=== PATIENT | male | born 1970 | race Caucasian/White ===

== ENCOUNTER 2021-09-01 12:02 | Outpatient (REF) | payer OTHER, SELFPAY ==
[2021-09-01 13:13] LABS: Hematocrit 50.5 % (42.0-52.0); Hemoglobin 17.1 g/dl (14.0-18.0); Mean Corpuscular HGB Conc 33.9 g/dl (31.0-36.0); Mean Corpuscular Volume 94.6 fL (80.0-98.0); Mean Platelet Volume 9.6 fL (9.4-12.4); Platelet Count 269 X10*3/uL (160-400); Red Blood Count 5.34 X10*6/uL (4.60-5.80); Red Cell Distribution Width 14.3 % (11.0-16.0); White Blood Count 9.8 X10*3/uL (4.8-10.8)
[2021-09-01 13:24] LABS: Estimated Average Glucose 108 mg/dL; Hemoglobin A1c % 5.4 %
[2021-09-01 13:47] LABS: Alanine Aminotransferase 49 U/L (0-40); Albumin Level 4.4 g/dL (3.5-5.0); Alkaline Phosphatase 61 U/L (39-117); Anion Gap 14 (12-20); Aspartate Amino Transferase 33 U/L (5-37); Bilirubin Total 0.4 mg/dL (0.0-1.0); Blood Urea Nitrogen 13 mg/dL (9-16); Calcium 10.2 mg/dL (8.4-10.2); Carbon Dioxide 26 mmol/L (22-29); Chloride 104 mmol/L (96-108); Cholesterol 228 mg/dL; Estimated Glomerular Filt Rate > 60; Glucose Fasting 87 mg/dL (60-99); HDL Cholesterol 73 mg/dL; LDL Cholesterol Calculated 136 mg/dl; Potassium 4.7 mmol/L (3.3-5.1); Sodium 139 mmol/L (135-145); Total Protein 7.5 g/dL (6.5-8.0); Triglycerides 95 mg/dL
[2021-09-01 14:00] LABS: Syphilis Screen Nonreactive (Nonreactive)
[2021-09-01 14:12] LABS: Prostate Specific Antigen Scr 0.72 ng/mL (<0.05-4.0); TSH reflex Free T4 4.03 uIU/mL (0.32-4.0)
[2021-09-01 14:51] LABS: Free T4 (Free Thyroxine) 0.76 ng/dL (0.71-1.85)
[2021-09-01 15:25] LABS: CT PCR NOT DETECTED (Not Detect.); NG PCR NOT DETECTED (Not Detect.)
[2021-09-02 05:57] LABS: HBS Num1 1.28 mIU/mL (0-7.99); HBc Num1 0.09 S/CO (0.00-0.79); HBsAGNum1 0.18 S/CO (0.00-0.99); HIV AB/AG Nonreactive (Nonreactive); HIV Num 1 0.07 S/CO (0.00-0.99); Hepatitis B Core Antibody Nonreactive (Nonreactive); Hepatitis B Surface Antigen Negative (Negative); ~Hepatitis B Surface Antibody NONREACTIVE (Nonreactive); ~Hepatitis C Antibody Nonreactive (Nonreactive)
== END 2021-09-01 12:03 | disposition home or self-care (01) ==
LOC: HO.LAB 12:02
PROVIDERS: PCP Physician Assistant; Visit Provider Physician Assistant
DX: Z12.5 Encounter for screening for malignant neoplasm of prostate (principal); Z11.4 Encounter for screening for human immunodeficiency virus [HIV]; Z11.3 Encounter for screening for infections with a predominantly sexual mode of transmission; Z20.2 Contact with and (suspected) exposure to infections with a predominantly sexual mode of transmission; I10 Essential (primary) hypertension; F17.200 Nicotine dependence, unspecified, uncomplicated
CPT/HCPCS: 80053; 80061; 83036; 84153; 84439; 84443; 85027; 86704; 86706; 86780; 86803; 87340; 87389; 87491; 87591

== ENCOUNTER 2022-02-14 18:36 | Emergency (ER) | payer OTHER, SELFPAY | END 2022-02-14 21:31 | disposition left against medical advice (07) | PROVIDERS: Emergency Provider Emergency Medicine; PCP Physician Assistant | DX: M54.50 Low back pain, unspecified (principal) ==

== ENCOUNTER 2022-02-16 06:49 | Emergency (ER) | payer OTHER, SELFPAY ==
[2022-02-16 07:31] VITALS: BP 151/104; PULSE 84; RESP 20; TEMP 36.4; O2SAT 97; BMI 28.8
--- NOTE | 2022-02-16 08:44 | ED.BACK ---
HPI - Back Pain/Injury General Chief Complaint: Back Pain/Injury Stated Complaint: Back pain/Leg pain Time Seen by Provider: 02/16/22 08:30 Source: patient Mode of arrival: ambulatory Limitations: no limitations History of Present Illness HPI Narrative: This is a 52-year-old male who has a past medical history of obstructive sleep apnea, hypertension, OCD who presents with complaints of lower back pain. Patient reports on Monday he was doing lot of yd work pulling weeds out of the ground and pulling bushes out as well. When he woke up the next day he noticed left lower back pain. This seemed to improve after about 24 hours so he resumed the yd work. Since yesterday pain is worsened. Pain is in the left lower back and radiates down to the left thigh. There is no associated numbness or tingling. No numbness in the groin. No bowel or bladder incontinence. No fevers or chills. Patient seen yesterday at a walk-in clinic. He was prescribed meloxicam 15 mg daily and cyclobenzaprine 10 mg at bedtime. Patient reports he took his medications last night but this morning he has continued pain Related Data Previous Rx's Medication Instructions Recorded miscellaneous medical supply #1 ea 09/16/20 (Blood Pressure Cuff) amlodipine 10 mg tablet 10 mg PO DAILY #90 tabs 09/01/21 clotrimazole 1 % topical cream 1 appl topical BID 15 days #45 09/01/21 grams miscellaneous medical supply 1 ea miscellaneous .nightly 99 11/10/21 days #1 ea fluoxetine 20 mg capsule 20 mg PO DAILY 90 days #90 caps 02/07/22 fluoxetine 40 mg capsule 40 mg PO DAILY 90 days #90 caps 02/07/22 cyclobenzaprine 10 mg tablet 10 mg PO BEDTIME #14 tabs 02/15/22 meloxicam 15 mg tablet 15 mg PO DAILY #14 tabs 02/15/22 naproxen 500 mg tablet 500 mg PO BID PRN pain #20 tabs 02/16/22 prednisone 20 mg tablet 40 mg PO DAILY #10 tabs 02/16/22 Allergies Allergy/AdvReac Type Severity Reaction Status Date / Time No Known Allergies Allergy Verified 02/15/22 13:19 [No Known Allergies*] Review of Systems Review of Systems: Yes all other systems are reviewed and are negative Constitutional: Constitutional: Reports no additional constitutional complaints, Denies body ache(s), Denies chills, Denies fever(s), Denies headache(s) and Denies weakness Eyes: Eyes: Reports no additional eye complaints and Denies change in vision ENT: Reports system reviewed and no additional complaints, except as documented, Denies dizziness, Denies headache(s), Denies nasal congestion, Denies nasal discharge and Denies neck pain Cardiovascular: Cardiovascular: Reports no additional cardiovascular complaints, Denies chest pain, Denies leg edema and Denies dyspnea Respiratory: Respiratory: Reports no additional respiratory complaints, Denies cough and Denies dyspnea Gastrointestinal: Gastrointestinal: Reports no additional gastrointestinal complaints, Denies abdominal pain, Denies diarrhea, Denies nausea and Denies vomiting Genitourinary: Genitourinary: Denies urinary incontinence Musculoskeletal: Musculoskeletal: Reports no additional musculoskeletal complaints, Reports back pain, Denies arthralgias, Denies joint swelling, Denies neck pain, Denies numbness, Reports radiating pain into limb and Denies tingling Integumentary/Breasts: Skin/Breast: Reports system reviewed and no additional complaints, except as docu and Denies rash Neurologic: Reports system reviewed and no additional complaints, except as documented, Denies Abnormal speech present, Denies dizziness, Denies headache(s), Denies numbness, Denies tingling and Denies weakness PMFSH Past Medical History Attestation statement: The following information was validated with the patient. Source: old records reviewed and nursing notes reviewed Surgical History History of tonsillectomy Family History Family History Mother No problems noted. Father Skin cancer Other Mental health disorder Social History Social History Household Members: Family Housing: House Alcohol intake: current Alcohol intake frequency: 3 or more drinks per day Alcohol type: beer Patient Tobacco Use Status: Current everyday Tobacco user Tobacco use type: Cigarette Cigarettes Per Day: 10 Years Smoked: 8 years e-Cigarette/Vaping Use: Never Used Second Hand Smoke Exposure: Yes Advance Directives: No Advance Directives Information Provided: Yes service: No Current occupational status: disabled Cognitive needs: No Hearing needs: No Vision needs: No Physical Exam Vital Signs: Vital Signs: Last Vital Signs Temp 97.6 F 02/16/22 07:31 Pulse 84 02/16/22 07:31 Resp 20 02/16/22 07:31 BP 151/104 H 02/16/22 07:31 Pulse Ox 97 02/16/22 07:31 O2 Del Method 02/16/22 07:31 BMI result Body Mass Index 28.8 Const: General: cooperative, healthy appearing, comfortable and no acute distress Orientation/consciousness: patient oriented x3 Limitations: no limitations HEENT: Head: Yes normal to inspection Ears: hearing grossly normal bilaterally General nose exam: Normal external nose present Face and sinus: Yes normal facial exam Mouth: Normal oral and palatal mucosa present Throat: Yes posterior oropharynx normal Eyes: General: appearance normal, both eyes and all related structures Pupils: Equal, round and reactive pupils present Neck: Neck: Yes normal visual inspection Chest: Chest palpation & inspection: normal inspection of the chest Resp: Effort & Inspection: normal respiratory effort Auscultation: clear to auscultation bilaterally Cardio: Rate: regular rate Rhythm: regular rhythm Peripheral pulses: Peripheral pulses 2+ throughout GI: Inspection: Yes normal to inspection Palpation (GI): Soft to palpation and nontender Auscultation: normal bowel sounds Back/Spine/Pelvis: Other: To the lumbar arm low spine there is some midline tenderness with no step-offs deformities. There is tenderness to the lumbar left paraspinal area and soft tissue which is worsened with flexion and extension of the spine. Pain is also worsened with left straight leg raise. Thoracic/Lumbar Spine: thoracic and lumbar spine normal to inspection Skin: General skin exam: no rashes or lesions noted Neuro: General: patient oriented x3, moves all extremities, no focal motor deficits and normal sensation to monofilament Cranial nerves: Yes CN's II-XII intact bilaterally, Yes Equal, round and reactive pupils present, Yes Bilaterally intact EOM present, Yes Nystagmus not present, Yes Normal facial strength present and Yes Midline tongue present Cognition (Neuro): normal cognition Speech: No Abnormal speech present Gait exam (Neuro): Normal gait present Motor exam (neuro): 5/5 motor strength present throughout Sensory Exam: Normal double simultaneous stimulation for sensation Deep tendon reflexes (DTR's): Right patellar reflex intensity grade: 2+ and Left patellar reflex intensity grade: 2+ Extrem: General: Yes normal to inspection MDM - Back Pain/Injury MDM Narrative Medical decision making narrative: 52-year-old male here with lower back pain with radiation to the left thigh after doing some yd work this weekend which required him to pole in [place] on bushes and weeds. On exam patient has tenderness over the lumbar spine and over the soft tissue area on the left side there are no palpable step-offs deformities of the spine. There is no CVA tenderness. There is some radiation of pain into the left thigh a with no sensation loss. On exam patient has no overt neurological deficits or red flag symptoms. Likely lumbar radiculopathy Low concern for epidural abscess with no history of immunocompromise state, IV drug abuse, reports of fever, no neurological deficits Considered cord compression but less likely with no reports of incontinence, saddle anesthesia, retention and normal neurological exam There is trauma history but I did consider nonmechanical causes of back pain including renal colic, pyelonephritis, pancreatitis, AAA Patient was seen at urgent care yesterday and discharged with an NSAID and muscle relaxant. Patient took 1 dose of each last night reports continued pain. We will change his NSAID. We will increase his frequency of Flexeril. We will add prednisone for several days. Recommended follow-up with primary care doctor for any persistent symptoms. He should return for any incontinence of urine or stool, urinary retention, fevers, numbness in the groin, weakness, numbness or tingling in lower extremities. Patient is comfortable plan for discharge home Medical Records Attestation: I reviewed the patient's medical records. Lab Data Attestation: I reviewed the patient's lab results. Discharge Plan Discharge Clinical Impression: Lumbar radiculopathy Patient Disposition: Home, Self-Care Instructions: Lumbar Radiculopathy (ED) Additional Instructions: Stop taking meloxicam. Start taking naproxen. Increased cyclobenzaprine to 3 times daily. This may cause some sedation so no driving or operating machinery while taking this. Start prednisone today. Take this for the entire course of the medication. Heat or ice to the back Gentle stretching No heavy lifting or bending Follow-up with your primary care doctor for any persistent symptoms. Return to the emergency room for any fever, numbness in the groin, incontinence of urine or stool Prescriptions: New naproxen 500 mg tablet 500 mg PO BID PRN (Reason: pain) Qty: 20 0RF prednisone 20 mg tablet 40 mg PO DAILY Qty: 10 0RF No Action fluoxetine 20 mg capsule 20 mg PO DAILY 90 Days Qty: 90 1RF fluoxetine 40 mg capsule 40 mg PO DAILY 90 Days Qty: 90 1RF Rx Instructions: Takes 60mg daily (DME) Blood Pressure Cuff Misc See Rx Instructions .ROUTE .MEDSUPPLY Qty: 1 0RF Rx Instructions: As directed meloxicam 15 mg tablet 15 mg PO DAILY Qty: 14 0RF cyclobenzaprine 10 mg tablet 10 mg PO BEDTIME Qty: 14 0RF clotrimazole 1 % cream 1 appl topical BID 15 Days Qty: 45 3RF amlodipine 10 mg tablet 10 mg PO DAILY Qty: 90 1RF miscellaneous medical supply Misc 1 ea miscellaneous .nightly 99 Days Qty: 1 0RF Referrals: Matteo Orosco PA-C [Primary Care Provider] - 5 days (persistent symptoms ) Stand Alone Forms: Work/School Release Interventions: ED Discharge Assessment Last Done: 02/16/22 09:17 Discharge Date/Time: 02/16/22 09:18
== END 2022-02-16 09:18 | disposition home or self-care (01) ==
PROVIDERS: Emergency Provider Emergency Medicine; PCP Physician Assistant
DX: M54.50 Low back pain, unspecified (principal); G47.33 Obstructive sleep apnea (adult) (pediatric); I10 Essential (primary) hypertension; F17.210 Nicotine dependence, cigarettes, uncomplicated; Z71.6 Tobacco abuse counseling; Z79.899 Other long term (current) drug therapy
CPT/HCPCS: 99283

== ENCOUNTER → 2022-07-26 10:50 | Outpatient (BNVA) | payer OTHER, SELFPAY | PROVIDERS: PCP Physician Assistant; Visit Provider Nurse Practitioner Family | DX: Z12.11 Encounter for screening for malignant neoplasm of colon (principal) | CPT/HCPCS: 99202 ==

== ENCOUNTER 2023-02-24 10:24 | Outpatient (REF) | payer OTHER, SELFPAY ==
[2023-02-24 10:53] LABS: Hemoglobin 18.3 g/dl (14.0-18.0); Mean Corpuscular HGB Conc 33.2 g/dl (31.0-36.0); Mean Corpuscular Volume 96.3 fL (80.0-98.0); Platelet Count 221 X10*3/uL (160-400); Red Blood Count 5.72 X10*6/uL (4.60-5.80); Red Cell Distribution Width 14.6 % (11.0-16.0); White Blood Count 6.8 X10*3/uL (4.8-10.8)
[2023-02-24 10:54] LABS: Hematocrit 55.1 % (42.0-52.0)
[2023-02-24 11:34] LABS: Alanine Aminotransferase 64 U/L (0-40); Albumin Level 4.2 g/dL (3.5-5.0); Alkaline Phosphatase 67 U/L (39-117); Anion Gap 10 (12-20); Aspartate Amino Transferase 40 U/L (5-37); Bilirubin Total 0.7 mg/dL (0.0-1.0); Blood Urea Nitrogen 12 mg/dL (9-16); Calcium 9.7 mg/dL (8.4-10.2); Carbon Dioxide 27 mmol/L (22-29); Chloride 107 mmol/L (96-108); Cholesterol 208 mg/dL (<200); Estimated Glomerular Filt Rate > 60; Glucose Fasting 94 mg/dL (60-99); HDL Cholesterol 48 mg/dL (>40); LDL Cholesterol Calculated 132 mg/dL (<100); Potassium 3.9 mmol/L (3.3-5.1); Sodium 140 mmol/L (135-145); Total Protein 7.2 g/dL (6.5-8.0); Triglycerides 143 mg/dL (<150)
[2023-02-24 11:52] LABS: TSH reflex Free T4 3.46 uIU/mL (0.32-4.0)
== END 2023-02-24 10:25 | disposition home or self-care (01) ==
LOC: HO.LAB 10:24
PROVIDERS: PCP Physician Assistant; Visit Provider Physician Assistant
DX: I10 Essential (primary) hypertension (principal); R79.89 Other specified abnormal findings of blood chemistry
CPT/HCPCS: 36415; 80053; 80061; 84443; 85027

== ENCOUNTER 2023-04-04 09:43 | Outpatient (AMB) | payer OTHER, SELFPAY ==
[2023-04-04 09:50] VITALS: BP 132/98; PULSE 86; BMI 29.8
--- NOTE | 2023-04-04 09:50 | MHC.PC.OV ---
Vital Signs 04/04/23 09:50 Height 5 ft 8 in Weight 196 lb 2 oz BMI 29.8 BP 132/98 H Blood Pressure Location Lt brachial Position Sitting Pulse 86 Pulse Source Palpation Intake Visit Reasons: pe Intake Note: Patient is here today for a physical. [employer] Required: No Accompanied by: Self / Same As Patient Allergies No Known Allergies [No Known Allergies*] Allergy (Verified 04/04/23 10:02) Medication List - Last Reconciled 04/04/23 by Matteo Orosco PA-C amlodipine 10 mg PO DAILY clotrimazole 1% 1 appl topical BID 15 days fluoxetine 40 mg PO DAILY 90 days fluoxetine 20 mg PO DAILY 90 days miscellaneous medical supply (Blood Pressure Cuff) As directed miscellaneous medical supply 1 ea miscellaneous .nightly 99 days Tobacco use date assessed: 09/22/22 (Pt would try to quit.) Dental Screening Dental Screen Date: 04/04/23 Did you have a dental visit in the last 12 months?: Yes Did you have a dental problem in the last 6 months where you did not have access to dental care?: No Was dental information given to patient?: Patient has dentist HPI pe HPI Details Patient is a 53-year-old male here today for a follow-up visit.? Patient has a past medical history significant for hypertension, OCD, tobacco use disorder, alcohol use disorder. .. HTN:? Blood pressure slightly elevated today.? Continues?on amlodipine 10 mg without any? side effect. ? He does not monitor blood pressure at home. Does have a blood pressure cuff [employer] bbl to him. Alcohol dependence:? Unfortunately continues to drink though he reports he has cut down. ( reports 7-8 beers per day) .. Obstructive sleep apnea:? Continues with the use of his CPAP machine on a nightly basis with good effect on his sleep. Of note hemoglobins slightly elevated on most recent labs. .. Tobacco dependence:? Unfortunately continues to smoke, has tried nicotine replacement therapy though has not been effective for him. Vaccines: Up-to-date with tetanus vaccine, COVID vaccine, decline flu vaccine , considering pneumonia vaccine and shingles vaccine Colon cancer screening: Had pre colonoscopy screening, waiting for procedure [facility] Surgical History History of tonsillectomy Family History Mother No problems noted. Father Skin cancer Other Mental health disorder Social History (Updated 04/04/23 @ 10:08 by Matteo Orosco PA-C) Household Members: Family Housing: House Alcohol intake: current Alcohol intake frequency: 3 or more drinks per day Alcohol type: beer Patient Tobacco Use Status: Current everyday Tobacco user Tobacco use type: Cigarette Cigarettes Per Day: 10 Years Smoked: 8 years e-Cigarette/Vaping Use: Never Used Second Hand Smoke Exposure: Yes service: No Current occupational status: disabled Current occupation: part-time- [employer] Cognitive needs: No Hearing needs: No Vision needs: No Questionnaire Thrive Questionnaire Date Thrive assessed: 09/22/22 YUSRA-7 AMB Questionnaire YUSRA-7 Date YUSRA - 7 assessed: 09/22/22 Source: Developed by Drs. Babar Prince, Aspen Brennan, Shiva Caceres and colleagues, with an educational deshaun from [employer]. Review of Systems Const Denies body aches, Denies chills, Denies excessive sweating, Denies fatigue, Denies fever(s) and Denies headache(s) Eyes Denies blurry vision ENT Denies dysphagia, Denies vertigo, Denies dizziness, Denies headache(s), Denies hearing loss and Denies tinnitus Card Denies chest pain, Denies chest pain with activity, Denies syncope, Denies irregular heart rhythm and Denies dyspnea Resp Denies chest congestion, Denies cough, Denies hemoptysis, Denies dyspnea and Denies wheezing GI Denies abdominal pain, Denies melena, Denies hematochezia, Denies coffee ground emesis, Denies dysphagia, Denies diarrhea, Denies nausea and Denies vomiting Denies difficulty urinating, Denies dysuria, Denies urinary frequency, Denies urinary hesitancy and Denies urinary urgency Musc Denies arthralgias, Denies limited range of motion, Denies muscle cramps and Denies muscle weakness Skin/Breast Denies rash and Denies skin ulcer Neuro Denies Abnormal speech present, Denies confusion, Denies vertigo, Denies dizziness, Denies syncope, Denies headache(s), Denies memory loss and Denies seizure-like activity Psych Denies anxiety, Denies confusion, Denies depression, Denies memory loss, Denies panic attacks and Denies paranoia Endo Denies excessive sweating, Denies fatigue, Denies flushing, Denies polydipsia and Denies polyuria Aller/Immun Denies wheezing Physical exam (Primary Care) Vital Signs: Last Vital Signs Pulse 86 04/04/23 09:50 BP 132/98 H 04/04/23 09:50 BMI result Body Mass Index 29.8 Tobacco/Smoking Status: Tobacco use Status Tobacco use date assessed 09/22/22 (Pt would try to 04/04/23 09:51 quit.) Patient Tobacco Use Status Current everyday Tobacco 04/04/23 09:51 Tobacco use type Cigarette 04/04/23 09:51 e-Cigarette/Vaping Use Never Used 04/04/23 09:51 Are you ready to quit: No Tobacco cessation counseling provided: Yes Items discussed: Nicotine replacement Relapse Prevention: discussed the importance of a supportive environment, weight gain after smoking is common and discussed dietary, exercise and/or lifestyle changes Number of minutes spent counselin CPT code: 06431 - 4-10 Minutes Thrive Assessment: Date of Thrive Assessment Date Thrive assessed 09/22/22 04/04/23 09:51 Const General: cooperative, comfortable, no acute distress, alert and awake; No confusion Orientation/consciousness: oriented to person, oriented to place, patient oriented x3 and No confusion HENMT Head: Yes normocephalic Ears: external ears normal and TM's normal bilaterally Face and sinus: No sinus tenderness Mouth: Normal oral and palatal mucosa present and tongue normal Teeth and gingiva: dentition normal and gingiva normal Throat: Yes posterior oropharynx normal, Yes tonsils normal and Yes uvula midline Eyes Conjunctivae: conjunctivae normal Sclerae: sclerae normal Pupils: Equal, round and reactive pupils present EOM: EOMs intact bilaterally Direct Ophthalmoscopy: No no photophobia Neck Neck: Yes no lymphadenopathy, No tender and Yes no JVD Thyroid: Thyroid normal Carotids: no bruits Chest Chest palpation & inspection: no tenderness Resp Effort & Inspection: normal respiratory effort, no audible wheezes, not labored and no stridor Auscultation: no crackles, no rales, no rhonchi and no wheezes Cardio Jugular venous distension: no JVD Rate: regular rate, not bradycardic and not tachycardic Rhythm: regular rhythm Bruits: no carotid bruits Peripheral pulses: Peripheral pulses 2+ throughout GI Inspection: Yes normal to inspection, No abdominal wall ecchymosis and No visible herniation Palpation (GI): Soft to palpation, nontender, no guarding, not rigid and No hepatosplenomegaly present Auscultation: normoactive bowel sounds General: Yes no CVA tenderness Back/Spine/Pelvis Back: no CVA tenderness and No back tenderness Cervical Spine: cervical ROM normal Thoracic/Lumbar Spine: thoracic and lumbar spine normal to inspection, straight leg raise negative bilaterally, No thoraco-lumbar ROM limited and No lumbar spinal tenderness Skin Lesions: no lesions Rashes: no rashes Wounds: no wounds Neuro General: oriented to person, oriented to place, patient oriented x3, CN's II-XI intact bilaterally and No confusion Cranial nerves: Yes Equal, round and reactive pupils present and Yes Normal accommodation reflex present Cognition (Neuro): normal cognition Speech: No Abnormal speech present Gait exam (Neuro): Normal gait present Motor exam (neuro): 5/5 motor strength present throughout Extrem Right upper extremity: full ROM; no cyanosis Left upper extremity: full ROM; no cyanosis Right lower extremity: no edema Left lower extremity: no edema Psych Appearance: grossly normal Mental Status: mental status grossly normal Affect: normal affect Attitude: cooperative Thought process: Normal thought process present Assessment and Plan Assessment & Plan (1) Adult general medical exam: Code(s): Z00.00 - Encounter for general adult medical examination without abnormal findings (2) Borderline high cholesterol: Code(s): E78.9 - Disorder of lipoprotein metabolism, unspecified Plan: MOST RECENT LIPID PANEL SHOWING BORDERLINE HIGH TOTAL CHOLESTEROL. HE WILL WORK ON LIFESTYLE MODIFICATIONS AND REDUCE HIGH CHOLESTEROL IN HIS DIET.. (3) HTN (hypertension): Code(s): I10 - Essential (primary) hypertension Qualifiers: Hypertension type: unspecified Qualified Code(s): I10 - Essential (primary) hypertension Plan: Patient's pressure slightly elevated diastolic number today in office, advised to monitor blood pressure at home. Continues current dose of amlodipine with goal blood pressure to be below 140/90 (4) Smoking: Code(s): F17.200 - Nicotine dependence, unspecified, uncomplicated Plan: Unfortunately patient continues to smoke. Declines my offers to start nicotine replacement therapy. Will try to reduce his cigarette smoking on his own. (5) Alcohol dependence: Code(s): F10.20 - Alcohol dependence, uncomplicated Qualifiers: Substance use status: uncomplicated Qualified Code(s): F10.20 - Alcohol dependence, uncomplicated Plan: Unfortunately continues to drink 7-8 beers per day and does understand he needs to cut down and stop. Offered him no checks only declines my offers at this time. Will continue to follow with liver enzymes. (6) Elevated TSH: Code(s): R79.89 - Other specified abnormal findings of blood chemistry Plan: Has normalized repeat testing. Will continue to follow TSH (7) OCD (obsessive compulsive disorder): Code(s): F42.9 - Obsessive-compulsive disorder, unspecified Qualifiers: Obsessive-compulsive disorder type: unspecified Qualified Code(s): F42.9 - Obsessive-compulsive disorder, unspecified Plan: Continues on 60 mg of fluoxetine with good effect on reducing his OCD tendencies. Orders: Orders Prostate Specific Antigen Scr Today I10 - Essential (primary) hypertension, Z12.5 - Encounter for screening for malignant neoplasm of prostate Comprehensive [place]. Panel Fast Today I10 - Essential (primary) hypertension TSH reflex Free T4 Today R79.89 - Other specified abnormal findings of blood chemistry Lipid Panel Today E78.9 - Disorder of lipoprotein metabolism, unspecified Microalbumin, Random (w Creat) Today I10 - Essential (primary) hypertension Complete Blood Count no Diff Today G47.33 - Obstructive sleep apnea (adult) (pediatric) Medications: Refilled clotrimazole 1% 1 appl topical BID 45 grams 3RF 15 days B36.0 - Pityriasis versicolor fluoxetine Takes 60mg daily 40 mg PO DAILY 90 caps 1RF 90 days F42.9 - Obsessive-compulsive disorder, unspecified fluoxetine 20 mg PO DAILY 90 caps 1RF 90 days F42.9 - Obsessive-compulsive disorder, unspecified Coding Level of Care Code Est Pt Prev Care 40-64y(87112) Diagnoses Adult general medical exam Z00.00 Borderline high cholesterol E78.9 Hypertension, unspecified type I10 Hypertension type: unspecified Smoking F17.200 Uncomplicated alcohol dependence F10.20 Substance use status: uncomplicated Elevated TSH R79.89 Obsessive-compulsive disorder, unspecified type F42.9 Obsessive-compulsive disorder type: unspecified Additional Codes Vital Signs *Quality* - CPT code: 74454 - 4-10 Minutes ([id number])
== END 2023-04-04 10:22 | disposition home or self-care (01) ==
PROVIDERS: PCP Physician Assistant; Visit Provider Physician Assistant
DX: Z00.00 Encounter for general adult medical examination without abnormal findings (principal); F10.20 Alcohol dependence, uncomplicated; E78.9 Disorder of lipoprotein metabolism, unspecified; I10 Essential (primary) hypertension; F17.210 Nicotine dependence, cigarettes, uncomplicated; R79.89 Other specified abnormal findings of blood chemistry; F42.9 Obsessive-compulsive disorder, unspecified
CPT/HCPCS: 99396; 99406

== ENCOUNTER 2023-07-24 09:13 | Outpatient (AMB) | payer OTHER, SELFPAY ==
[2023-07-24 09:15] VITALS: BP 134/84; PULSE 90; RESP 16; O2SAT 96; BMI 29.8
--- NOTE | 2023-07-24 09:15 | A.OFFPC_ITS ---
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 Accompanied by: Self / Same As Patient Allergies No Known Allergies [No Known Allergies*] Allergy (Verified 07/24/23 09:28) Medication List - Last Reconciled 07/24/23 by Matteo Orosco PA-C amlodipine 10 mg PO DAILY clotrimazole 1% 1 appl topical BID 15 days fluoxetine 40 mg PO DAILY 90 days fluoxetine 20 mg PO DAILY 90 days miscellaneous medical supply (Blood Pressure Cuff) As directed miscellaneous medical supply 1 ea miscellaneous .nightly 99 days Tobacco use date assessed: 07/24/23 (Pt would try to quit.) Dental Screening Dental Screen Date: 07/24/23 Did you have a dental visit in the last 12 months?: Yes Did you have a dental problem in the last 6 months where you did not have access to dental care?: No Was dental information given to patient?: Patient has dentist HPI Rectal bleeding HPI Details Patient is a 53-year-old male here today for problem visit. He is noted some bright red blood per rectum over the last 2 months intermittently. He denies any rectal pain or abdominal pain. He reports the blood is bright red and denies having any myoclonic or black tarry stools. He denies having any constipation. He was due for colonoscopy and did have pre colonoscopy screening though has never been called to schedule colonoscopy procedure. [facility] Surgical History History of tonsillectomy Family History Mother No problems noted. Father Skin cancer Other Mental health disorder Social History Household Members: Family Housing: House Alcohol intake: current Alcohol intake frequency: 3 or more drinks per day Alcohol type: beer Patient Tobacco Use Status: Current everyday Tobacco user Tobacco use type: Cigarette Cigarettes Per Day: 10 Years Smoked: 8 years e-Cigarette/Vaping Use: Never Used Second Hand Smoke Exposure: Yes service: No Current occupational status: disabled Current occupation: part-time- [employer] Cognitive needs: No Hearing needs: No Vision needs: No Questionnaire PHQ-9 Over the last 2 weeks, how often have you been bothered by any of the following problems? 1. Little interest or pleasure in doing things: several days 2. Feeling down, depressed, or hopeless: several days 3. Trouble falling or staying asleep, or sleeping too much: several days 4. Feeling tired or having little energy: several days 5. Poor appetite or overeating: more than half the days 6. Feeling bad about yourself - or that you are a failure or have let yourself or your family down: more than half the days 7. Trouble concentrating on things, such as reading the newspaper or watching television: more than half the days 8. Moving or speaking so slowly that other people could have noticed. Or the opposite - being so fidgety or restless that you have been moving around a lot more than usual: not at all 9. Thoughts that you would be better off or of hurting yourself in some way: several days Total score: 11 Depression Screening Interpretation: Positive Depression Screening Follow-up: Existing condition Depression Screening Done: Yes 40317 - PHQ-9 Billing: Yes Source: Developed by Drs. Babar Prince, Aspen Brennan, Shiva Caceres and colleagues, with an educational deshaun from [employer]. Thrive Questionnaire Date Thrive assessed: 07/24/23 I am a: Patient What is your living situation today?: I have a steady place to live Within the past 12 months, did the food you bought not last and you didn't have the money to get more?: Never true Within the past 12 months, did you worry whether your food would run out before you got money to buy more?: Never true Do you have trouble paying for medicines?: No Do you have trouble getting transportation to medical appointments?: No Do you have trouble paying your heating and electricity bill?: No Do you have trouble taking care of your child, family member or friend?: No Do you have trouble with day-to-day activities such as bathing, preparing meals, shopping, managing finances, etc.?: No Are you currently unemployed and looking for a job?: No Are you interested in more education?: No Please select the resources that you would like help with: None Currently or been in a relationship where the following occur: no concerns reported THRIVE Score: 0 AUDIT C Alcohol Use Questionnaire (AUDIT-C) 1. How often do you have a drink containing alcohol?: 4 or more times a week 2. How many drinks containing alcohol do you have on a typical day when you are drinking?: 5 or 6 3. How often do you have six or more drinks on one occasion?: Weekly Total Score: 9 YUSRA-7 AMB Questionnaire YUSRA-7 Date YUSRA - 7 assessed: 07/24/23 Feeling nervous, anxious, or on edge: 2 = More than half the days Not being able to stop or control worryin = More than half the days Worrying too much about different things: 3 = Nearly every day Trouble relaxin = More than half the days Being so restless that it is hard to sit still: 2 = More than half the days Becoming easily annoyed or irritable: 2 = More than half the days Feeling afraid as if something awful might happen: 3 = Nearly every day Total YUSRA-7 score (0-4 normal; 5-9 mild; 10-14 moderate; 15-21 severe): 16 Source: Developed by Drs. Babar Prince, Aspen Brennan, Shiva Caceres and colleagues, with an educational deshaun from [employer]. YUSRA-7 Assessment Billing YUSRA-7 Assessment Tool: YUSRA-7 Assessment 80696 Review of Systems Const Denies headache(s) Eyes Denies loss of vision ENT Denies vertigo, Denies dizziness, Denies headache(s) and Denies sore throat Card Denies chest pain, Denies leg edema and Denies lightheadedness Resp Denies cough, Denies hemoptysis and Denies wheezing GI Denies abdominal pain, Denies melena, Reports hematochezia, Denies constipation, Denies diarrhea and Denies vomiting Denies dysuria, Denies urinary frequency and Denies urinary urgency Musc Denies arthralgias, Denies joint swelling, Denies numbness and Denies tingling Neuro Denies Abnormal speech present, Denies behavioral changes, Denies vertigo, Denies dizziness, Denies headache(s), Denies loss of vision, Denies memory loss, Denies numbness and Denies tingling Psych Denies anxiety, Denies behavioral changes, Denies depression, Denies memory loss and Denies panic attacks Gonzalo/Lymph Denies easy bleeding and Denies easy bruising Aller/Immun Denies wheezing Physical exam (Primary Care) Vital Signs: Last Vital Signs Pulse 90 07/24/23 09:15 Resp 16 07/24/23 09:15 BP 134/84 07/24/23 09:15 Pulse Ox 96 07/24/23 09:15 Oxygen Delivery Method Room Air 07/24/23 09:15 BMI result Body Mass Index 29.8 Tobacco/Smoking Status: Tobacco use Status Tobacco use date assessed 07/24/23 (Pt would try to 07/24/23 09:26 quit.) Patient Tobacco Use Status Current everyday Tobacco 07/24/23 09:26 Tobacco use type Cigarette 07/24/23 09:26 e-Cigarette/Vaping Use Never Used 07/24/23 09:26 PHQ-9: PHQ-9 Score PHQ-9: Total score 11 07/24/23 09:30 Depression Screening Interpretation: Positive Depression Screening Follow-up: Existing condition Thrive Assessment: Date of Thrive Assessment Date Thrive assessed 07/24/23 07/24/23 09:26 Currently or been in a relationship where the following occur: no concerns reported Const General: healthy appearing, no acute distress, alert and awake Nutritional Appearance: well nourished Orientation/consciousness: oriented to person, oriented to place and oriented to time HENMT Ears: TM's normal bilaterally General nose exam: Normal nasal mucous membranes and turbinates present Eyes Conjunctivae: conjunctivae normal Sclerae: sclerae normal Pupils: Equal, round and reactive pupils present Neck Neck: Yes no lymphadenopathy and Yes no JVD Thyroid: Thyroid normal Carotids: no bruits Resp Effort & Inspection: normal respiratory effort and not tachypneic Auscultation: no crackles, no rales, no rhonchi and no wheezes Cardio Rate: regular rate Rhythm: regular rhythm Heart sounds: no murmurs and normal S1 and S2 GI Palpation (GI): Soft to palpation, nontender, no hepatomegaly and no splenomegaly Auscultation: normal bowel sounds Skin General skin exam: no rashes or lesions noted and dry skin Neuro General: oriented to person, oriented to place and oriented to time Cranial nerves: Yes Equal, round and reactive pupils present Speech: No Abnormal speech present Gait exam (Neuro): Normal gait present Motor exam (neuro): no tremor noted Extrem Right upper extremity: full ROM Left upper extremity: full ROM Right lower extremity: full ROM; no edema Left lower extremity: full ROM; no edema Psych Mental Status: mental status grossly normal Speech and movement: Normal speech and movement present Affect: normal affect Attitude: cooperative Thought process: Normal thought process present Assessment and Plan Assessment & Plan (1) Bright red blood per rectum: Code(s): K62.5 - Hemorrhage of anus and rectum Plan: Likely experiencing internal hemorrhoid bleeding. Advised Sitz baths and reducing his alcohol intake. Will try to set him up with colonoscopy screening (2) Colon cancer screening: Code(s): Z12.11 - Encounter for screening for malignant neoplasm of colon Medications: Refilled clotrimazole 1% 1 appl topical BID 15 days 45 grams 3RF B36.0 - Pityriasis versicolor Coding Level of Care Code Est Pt Level 3 (18948) Diagnoses Bright red blood per rectum K62.5 Colon cancer screening Z12.11 Additional Codes YUSRA-7 Assessment Billing - YUSRA-7 Assessment Tool: YUSRA-7 Assessment 27418 ([id number])
== END 2023-07-24 09:42 | disposition home or self-care (01) ==
PROVIDERS: PCP Physician Assistant; Visit Provider Physician Assistant
DX: K62.5 Hemorrhage of anus and rectum (principal); Z12.11 Encounter for screening for malignant neoplasm of colon
CPT/HCPCS: 99213

== ENCOUNTER 2023-10-19 08:33 | Outpatient (REF) | payer OTHER, SELFPAY ==
--- NOTE | ~2023-10-19 | XR_ITS ---
EXAMINATION: XR BILATERAL FEET CLINICAL INFORMATION: Pain bilateral feet. COMPARISON: Left foot July 31, 2018. TECHNIQUE: 3 views of each foot. FINDINGS: RIGHT FOOT: Mild degenerative changes in the first metatarsophalangeal joint with joint space narrowing and hypertrophic change. Toes are flexed, limiting evaluation. Alignment preserved. LEFT FOOT: Mild degenerative changes in the first metatarsophalangeal joint with joint space narrowing and hypertrophic change. Toes are flexed, limiting evaluation. 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
--- NOTE | ~2023-10-19 | XR_ITS ---
EXAMINATION: XR BILATERAL FEET CLINICAL INFORMATION: Pain bilateral feet. COMPARISON: Left foot July 31, 2018. TECHNIQUE: 3 views of each foot. FINDINGS: RIGHT FOOT: Mild degenerative changes in the first metatarsophalangeal joint with joint space narrowing and hypertrophic change. Toes are flexed, limiting evaluation. Alignment preserved. LEFT FOOT: Mild degenerative changes in the first metatarsophalangeal joint with joint space narrowing and hypertrophic change. Toes are flexed, limiting evaluation. XR/XR foot LT 2V IMPRESSION: Mild degenerative changes in the bilateral first metatarsophalangeal joints.
== END 2023-10-19 08:34 | disposition home or self-care (01) ==
LOC: HO.LAB 08:33
PROVIDERS: PCP Physician Assistant; Visit Provider Physician Assistant
DX: M79.671 Pain in right foot (principal); M79.672 Pain in left foot
CPT/HCPCS: 73620

== ENCOUNTER 2023-11-23 06:56 | Day surgery (SDC) | payer OTHER, SELFPAY ==
[2023-11-21 14:25] VITALS: BMI 29.5
--- NOTE | 2023-11-22 10:10 | P.CONAN_ITS ---
Documented by User: Rosy Carter NP 11/22/23 10:12 HPI - Anesthesia Eval Consult details Narrative: 53yo M for Colonoscopy PMFSH Active Problems Active Problems: All Active Problems Bilateral foot pain (Acute) Bright red blood per rectum (Acute) Borderline high cholesterol (Acute) Skin lesion of right arm (Acute) Lumbar spine pain (Acute) Lower thoracic back pain (Acute) Elevated TSH (Acute) ANAMARIA (obstructive sleep apnea) (Acute) Screening for STD (sexually transmitted disease) (Acute) Alcohol dependence (Acute) Tinea versicolor due to Malassezia furfur (Acute) Adult general medical exam (Acute) Screening for diabetes mellitus (Acute) Screening for prostate cancer (Acute) Colon cancer screening (Acute) Tinea corporis (Acute) HTN (hypertension) (Acute) Smoking (Acute) OCD (obsessive compulsive disorder) (Acute) Past Medical History Medical History ANAMARIA (obstructive sleep apnea) Alcohol dependence HTN (hypertension) Family History Family History Mother No problems noted. Father Skin cancer Other Mental health disorder Surgical History Surgical History History of surgery History of placement of ear tubes History of tonsillectomy Social History Social History Household Members: Family Housing: House Alcohol intake: current Alcohol intake frequency: 3 or more drinks per day Alcohol type: beer Patient Tobacco Use Status: Current everyday Tobacco user Tobacco use type: Cigarette Cigarettes Per Day: 15 Years Smoked: 8 years e-Cigarette/Vaping Use: Never Used Second Hand Smoke Exposure: Yes Use of substances other than those prescribed or required for medical reasons: No Are you DNR?: No Advance Directives: No Advance Directives Information Provided: Yes service: No Current occupational status: disabled Current occupation: part-time- [employer] Cognitive needs: No Hearing needs: No Vision needs: No Meds Allergies Allergy/AdvReac Type Severity Reaction Status Date / Time No Known Allergies Allergy Verified 07/24/23 09:28 [No Known Allergies*] Exam Height,Weight and Vital Signs: Height 5 ft 8 in Weight 87.997 kg Assessment and Plan Assessment Anesthesia Assessment: Chart Reviewed Documented by User: Linda Campbell MD 11/23/23 08:08 PMFSH Past Medical History Medical History ANAMARIA (obstructive sleep apnea) Alcohol dependence HTN (hypertension) Family History Family History Mother No problems noted. Father Skin cancer Other Mental health disorder Surgical History Surgical History History of surgery History of placement of ear tubes History of tonsillectomy History of Problems with Anesthesia: No Social History Social History Household Members: Family Housing: House Alcohol intake: current Alcohol intake frequency: 3 or more drinks per day Alcohol type: beer Patient Tobacco Use Status: Current everyday Tobacco user Tobacco use type: Cigarette Cigarettes Per Day: 15 Years Smoked: 8 years e-Cigarette/Vaping Use: Never Used Second Hand Smoke Exposure: Yes Use of substances other than those prescribed or required for medical reasons: No Are you DNR?: No Advance Directives: No Advance Directives Information Provided: Yes service: No Current occupational status: disabled Current occupation: part-time- [employer] Cognitive needs: No Hearing needs: No Vision needs: No Meds Allergies Allergy/AdvReac Type Severity Reaction Status Date / Time No Known Allergies Allergy Verified 07/24/23 09:28 [No Known Allergies*] Exam Airway Mallampati Class: II TM Dist: >3cm Neck ROM: Full Loose/Missing/Broken Teeth: No Heart: RRR Lungs: CTA Assessment and Plan Assessment Anesthesia Assessment: Anesthesia Plan Discussed Final Anesthetic Review History of Problems with Anesthesia: No NPO: Yes ASA Class: III Final Preanesthetic Review: Meds/Allgs Chart Reviewed, Consent Obtained/Reviewed and Anes Risks/Benef Reviewed Patient Risk: Intermediate Procedure Risk: Low Anesthetic Plan Anesthetic Plan: MAC: Disposition: Standard PACU
[2023-11-23 07:29] VITALS: BMI 29.7
[2023-11-23 07:45] VITALS: BP 135/91; PULSE 70; RESP 16; TEMP 36.7; O2SAT 95
[2023-11-23] MEDS: Lactated Ringers 1,000 ML 100 ML IVCONT (07:52)
--- NOTE | 2023-11-23 08:25 | MHC.SHP ---
Pre-Procedural Eval Section A - 24 Hr Update-Section A only Date of Service: 11/23/23 Section B - Complete if H&P > 30 days Chief Complaint: screening Relevant Family History (Specify if Yes): No Relevant Social History: Alcohol Use Present Medications: see Short Stay Collaborative assessment Medical History: Significant History (ANAMARIA (obstructive sleep apnea) Alcohol dependence HTN (hypertension)) History of Previous Operations: Relevant previous surgery/procedure and date(s) ( History of surgery History of placement of ear tubes History of tonsillectomy) Allergies: Allergies Allergy/AdvReac Type Severity Reaction Status Date / Time No Known Allergies Allergy Verified 07/24/23 09:28 [No Known Allergies*] Review of Systems Sugical H&P ROS: Negative: Constitution, Cardiovascular, Respiratory, Neurological, Psychiatric, Hem-Onc, Allergic/Immunologic, Gastrointestinal, Genitourinary, Musculoskeletal, Integumentary, Endocrine and Eyes/Ears/Nose/Throat Exam Surgical H&P Exam: Normal: HEENT, Normal: Heart, Normal: Lungs, Normal: Extremities, Normal: Abdomen, Normal: Skin and Normal: Neurological Plan Diagnosis/Plan: Unchanged I have reviewed the history and physical and performed a pertinent physical examination on my patient. No changes have occurred unless specified. Time Spent With Patient Time: Total time managing care of this patient today ____ minutes.
--- NOTE | 2023-11-23 08:53 | P.OPN-COLO_ITS ---
Colonoscopy Operative Note Operative Note Date of Service: 11/23/23 Narrative: Operative Information Procedure Description: Colonoscopy Indication: Screening Anesthesia: MAC COLONOSCOPY Instrument: Olympus variable stiffness pediatric scope 190L Colonoscopy Monitoring: Vital signs and clinical assessment, continuous EKG monitoring, Pulse oximetry, Carbon Dioxide monitoring and blood pressure monitoring were done throughout the procedure. Colon withdrawal time was 10 minutes. Procedure: The patient was placed in the left lateral decubitis position and pre-procedure medications were administered. After a digital rectal examination of the ano-rectum, the video colonoscope was inserted into the rectum and advanced through the colon to the cecum/TI. The colonoscope was slowly withdrawn in a retrograde panoramic fashion and the colon mucosa was carefully examined including a retroflexed view of the rectum. Findings and interventions are described below. Procedure Difficulty: easy Findings: Terminal Ileum-normal Cecum:normal Ascending Colon: normal Transverse Colon -normal Descending Colon: 6-8 mm sessile polyp removed with cold snare Sigmoid Colon: moderate diverticulosis Rectum: Retroflexion with small internal hemorrhoids seen, grade I Anorectum - normal Intervention: cold snare Colon preparation: [place] Bowel Preparation Scale Right colon; 2 Transverse colon: 3 Left colon; 3 (0 = Unprepared colon segment with mucosa not seen due to solid stool that cannot be cleared. 1 = Portion of mucosa of the colon segment seen, but other areas of the colon segment not well seen due to staining, residual stool and/or opaque liquid. 2 = Minor amount of residual staining, small fragments of stool and/or opaque liquid, but mucosa of colon segment seen well. 3 = Entire mucosa of colon segment seen well with no residual staining, small fragments of stool or opaque liquid) Impression and Post Procedure Diagnosis: diverticulosis colon polyp internal hemorrhoids Plan: High fiber diet leaflet Avoid straining at stool, epsom salts and sitz bath, anusol supps or cream Repeat Colonoscopy in 5-6 years due to polyp or earlier if clinically indicated Above findings were reviewed with the patient and relevant handouts were provided if indicated.
[2023-11-23 08:59] VITALS: BP 117/66; PULSE 71; RESP 18; TEMP 36.9; O2SAT 96
[2023-11-23 09:14] VITALS: BP 112/77; PULSE 82; RESP 20; TEMP 36.4; O2SAT 94
== END 2023-11-23 09:41 | disposition home or self-care (01) ==
PROVIDERS: PCP Physician Assistant; Visit Provider Internal Medicine Gastroenterology
PROC: 0DJD8ZZ Inspection of Lower Intestinal Tract, Via Natural or Artificial Opening Endoscopic (ICD-10-PCS; CPT 45378; principal; 2023-11-23 08:20)
DX: Z12.11 Encounter for screening for malignant neoplasm of colon (principal); D12.4 Benign neoplasm of descending colon; K57.30 Diverticulosis of large intestine without perforation or abscess without bleeding; K64.0 First degree hemorrhoids; I10 Essential (primary) hypertension; G47.33 Obstructive sleep apnea (adult) (pediatric); F10.20 Alcohol dependence, uncomplicated; Z79.899 Other long term (current) drug therapy; Z99.89 Dependence on other enabling machines and devices; Z98.890 Other specified postprocedural states; F17.210 Nicotine dependence, cigarettes, uncomplicated
CPT/HCPCS: 45385; 88305; J2250; J2704

== ENCOUNTER → 2023-11-23 06:56 | Outpatient (BNV) | payer OTHER, SELFPAY | PROVIDERS: PCP Physician Assistant; Visit Provider Internal Medicine Gastroenterology | DX: Z12.11 Encounter for screening for malignant neoplasm of colon (principal); D12.4 Benign neoplasm of descending colon; K57.30 Diverticulosis of large intestine without perforation or abscess without bleeding; K64.8 Other hemorrhoids | CPT/HCPCS: 45385 ==

== ENCOUNTER 2023-12-08 11:20 | Outpatient (AMB) | payer OTHER, SELFPAY ==
--- NOTE | 2023-12-08 11:34 | A.OFFVIS_ITS ---
Vital Signs 12/08/23 11:35 Height 5 ft 8 in Weight 195 lb 12.328 oz BMI 29.8 BP 130/80 Blood Pressure Location Lt brachial Position Sitting Pulse 80 Pulse Source Pulse Oximeter Pulse Oximetry (%) 98 Oxygen Delivery Method Room Air Intake Visit Reasons: s/p colon Intake Note: Niko presents in office today for a scheduled post op FUV. CC; Pt denies any new concerns or sx at this time. Pt denies any complications post op. Pt reports that they are here to discuss the results of their s/p today. Interlocker Maintainer Required: No Accompanied by: Self / Same As Patient Allergies No Known Allergies [No Known Allergies*] Allergy (Verified 12/08/23 11:35) HPI HPI s/p colon: Details: LAST VISIT Colon cancer screening Patient denies any GI, cardiac or respiratory symptoms.? Denies any issues with anesthesia in the past.? History of ANAMARIA uses CPAP.? No history infectious diseases in the past or present.? Not on any anticoagulation therapy.? No family or personal history of colon cancer or polyps.? Patient denies melena, hematochezia, unintentional weight loss or ribbon like stools.? Discussed at length the pre-procedure,? prep, diet & medications as well as what to expect prior, during and after the procedure.?? Stressed the importance of good bowel prep. Discussed with patient the importance of avoiding alcohol before the procedure. ?Recommended the use of Vaseline or Calmoseptine OTC & baby wipes with bowel movements to promote comfort.? ?Patient verbalizes understanding and agrees to plan of care.? He was given the opportunity to ask questions and all questions answered.? We will see him after the procedure.? COLONOSCOPY Findings: Terminal Ileum-normal Cecum:normal Ascending Colon: normal Transverse Colon -normal Descending Colon: 6-8 mm sessile polyp removed with cold snare Sigmoid Colon: moderate diverticulosis Rectum: Retroflexion with small internal hemorrhoids seen, grade I Anorectum - normal Intervention: cold snare Colon preparation: Oneill Bowel Preparation Scale Right colon; 2 Transverse colon: 3 Left colon; 3 (0 = Unprepared colon segment with mucosa not seen due to solid stool that cannot be cleared. 1 = Portion of mucosa of the colon segment seen, but other areas of the colon segment not well seen due to staining, residual stool and/or opaque liquid. 2 = Minor amount of residual staining, small fragments of stool and/or opaque liquid, but mucosa of colon segment seen well. 3 = Entire mucosa of colon segment seen well with no residual staining, small fragments of stool or opaque liquid) Impression and Post Procedure Diagnosis: diverticulosis colon polyp internal hemorrhoids Plan: High fiber diet leaflet Avoid straining at stool, epsom salts and sitz bath, anusol supps or cream Repeat Colonoscopy in 5-6 years due to polyp or earlier if clinically indicated PATHOLOGY RESULTS Diagnosis Colon, descending, polypectomy: Tubular adenoma; negative for high-grade dysplasia or carcinomaM * TODAY'S VISIT Patient is here today for follow-up and to discuss colonoscopy results. Patient denies any ill effects from the prep, anesthesia or procedure itself. Patient reports that he has been feeling well. Denies any melena, hematochezia. Denies any abdominal pain or discomfort. Colonoscopy and biopsy results discussed with patient. Patient had 1 small tubular adenoma without high-grade dysplasia or carcinoma. Moderate diverticulosis in sigmoid colon. Patient reports that he eats fiber. Moves his bowels daily. Denies any GI concerning symptoms. [facility] Medical History (Updated 12/08/23 @ 12:03 by America Urias [facility]) Tubular adenoma of colon ANAMARIA (obstructive sleep apnea) Alcohol dependence HTN (hypertension) Surgical History History of surgery History of placement of ear tubes History of tonsillectomy Family History Mother No problems noted. Father Skin cancer Other Mental health disorder Social History Household Members: Family Housing: House Alcohol intake: current Alcohol intake frequency: 3 or more drinks per day Alcohol type: beer Patient Tobacco Use Status: Current everyday Tobacco user Tobacco use type: Cigarette Cigarettes Per Day: 15 Years Smoked: 8 years e-Cigarette/Vaping Use: Never Used Second Hand Smoke Exposure: Yes service: No Current occupational status: disabled Current occupation: part-time- [employer] Cognitive needs: No Hearing needs: No Vision needs: No Review of Systems Const Denies weight gain and Denies weight loss ENT Reports no additional complaints, Denies dysphagia and Denies odynophagia Card Reports no additional complaints Resp Reports no additional complaints GI Denies abdominal pain, Denies belching, Denies melena, Denies bloating, Denies change in bowel habits, Denies dysphagia, Denies excessive flatus, Denies dyspepsia, Denies heartburn, Denies diarrhea, Denies loose stools, Denies nausea, Denies odynophagia and Denies vomiting Reports no additional complaints Musc Reports no additional complaints Neuro Reports no additional complaints Psych Reports no additional complaints Endo Reports no additional complaints Physical Exam Vital Signs: Last Vital Signs Pulse 80 12/08/23 11:35 BP 130/80 12/08/23 11:35 Pulse Ox 98 12/08/23 11:35 Oxygen Delivery Method Room Air 12/08/23 11:35 BMI result Body Mass Index 29.8 Const General: healthy appearing, no acute distress and well developed Nutritional Appearance: well nourished Orientation/consciousness: patient oriented x3 Resp Effort & Inspection: normal respiratory effort, able to speak in complete sentences, no tracheal deviation and symmetric chest movement Auscultation: clear to auscultation bilaterally Cardio Rate: regular rate GI Inspection: Yes normal to inspection, No distended and Yes obesity Palpation (GI): Soft to palpation, not firm, nontender and No hepatosplenomegaly present Auscultation: normal bowel sounds General: Yes no CVA tenderness Back/Spine/Pelvis Back: no CVA tenderness Skin General skin exam: elasticity normal, turgor normal and dry skin Neuro General: patient oriented x3 Psych Appearance: grossly normal Mental Status: mental status grossly normal Assessment & Plan Assessment & Plan (1) Tubular adenoma of colon: Code(s): D12.6 - Benign neoplasm of colon, unspecified Category: Medical (2) Status post colonoscopy: Code(s): Z98.890 - Other specified postprocedural states (3) Diverticulosis: Code(s): K57.90 - Diverticulosis of intestine, part unspecified, without perforation or abscess without bleeding Plan Discussed with patient high-fiber diet. List of food high in fiber given to patient. One tubular adenoma without high-grade dysplasia or carcinoma found colonoscopy in 7 years, sooner if clinically necessary. Patient had good prep and according to guidelines 1 tubular adenoma less than 1 cm 7-10 year recall. Patient is agreeable to current plan of care and verbalizes understanding of instructions. He was given the opportunity to ask questions and all questions answered. Thank you for allowing me to participate in his care Coding Level of Care Code Est Pt Level 3 (24771) Diagnoses Tubular adenoma of colon D12.6 Status post colonoscopy Z98.890 Diverticulosis K57.90 Time Spent (min) 25 Comment 15 minutes spent with patient and additional 10 minutes spent reviewing his records
[2023-12-08 11:35] VITALS: BP 130/80; PULSE 80; O2SAT 98; BMI 29.8
== END 2023-12-08 12:51 | disposition home or self-care (01) ==
PROVIDERS: PCP Physician Assistant; Visit Provider Nurse Practitioner Family
DX: D12.6 Benign neoplasm of colon, unspecified (principal); Z98.890 Other specified postprocedural states; K57.90 Diverticulosis of intestine, part unspecified, without perforation or abscess without bleeding
CPT/HCPCS: 99213

== ENCOUNTER → 2023-12-08 11:20 | Outpatient (BNVA) | payer OTHER, SELFPAY | PROVIDERS: PCP Physician Assistant; Visit Provider Nurse Practitioner Family | DX: K57.90 Diverticulosis of intestine, part unspecified, without perforation or abscess without bleeding (principal); D12.6 Benign neoplasm of colon, unspecified; G47.33 Obstructive sleep apnea (adult) (pediatric); Z98.890 Other specified postprocedural states; Z99.89 Dependence on other enabling machines and devices | CPT/HCPCS: 99212 ==

== ENCOUNTER 2023-12-21 08:18 | Outpatient (AMB) | payer OTHER, SELFPAY ==
[2023-12-21 08:22] VITALS: BP 122/86; PULSE 67; O2SAT 98; BMI 29.5
--- NOTE | 2023-12-21 08:22 | A.OFFPC_ITS ---
Vital Signs 12/21/23 08:22 Height 5 ft 8 in Weight 194 lb 2 oz BMI 29.5 BP 122/86 Blood Pressure Location Lt brachial Position Sitting Pulse 67 Pulse Source Pulse Oximeter Pulse Oximetry (%) 98 Oxygen Delivery Method Room Air Intake Visit Reasons: Follow-up hypertension,borderline high cholesterol Furnace Checker Required: No Accompanied by: Self / Same As Patient Allergies No Known Allergies [No Known Allergies*] Allergy (Verified 12/21/23 08:35) Medication List - Last Reconciled 12/21/23 by Matteo Orosco PA-C amlodipine 10 mg PO DAILY bisacodyl (Dulcolax (bisacodyl)) 20 mg (4 x 5 mg) PO ONCE 1 day clotrimazole 1% 1 appl topical BID 15 days fluoxetine 40 mg PO DAILY 90 days fluoxetine 20 mg PO DAILY 90 days miscellaneous medical supply (Blood Pressure Cuff) As directed miscellaneous medical supply 1 ea miscellaneous .nightly 99 days polyethylene glycol 3350 (Miralax) 238 grams PO ONCE 1 day Tobacco use date assessed: 12/21/23 (Pt would try to quit.) Dental Screening Dental Screen Date: 12/21/23 Did you have a dental visit in the last 12 months?: No Did you have a dental problem in the last 6 months where you did not have access to dental care?: No Was dental information given to patient?: No HPI Follow-up hypertension,borderline high cholesterol HPI Details Patient is a 53-year-old male here today for a follow-up visit.? Patient has a past medical history significant for hypertension, OCD, tobacco use disorder, alcohol use disorder. Concern--> reports he has been having intermittent episodes difficulty swallowing. Did have an episode of choking on a piece of steak to which he had to make himself vomit. Patient is a smoker and drinker. PLAN: Will send for barium swallow to evaluate for esophageal stricture or ring. .. HTN:? Blood pressure in office today acceptable..? Continues?on amlodipine 10 mg without any? side effect. ? He does not monitor blood pressure at home. .. Borderline high cholesterol: Most recent labs showing borderline high cholesterol. Has been trying to make changes in his diet to reduce his cholesterol. Alcohol dependence:? Unfortunately continues to drink though he reports he has cut down. ( reports 7-8 beers per day) .. Obstructive sleep apnea:? Continues with the use of his CPAP machine on a nightly basis with good effect on his sleep. Of note hemoglobins slightly elevated on most recent labs. .. Tobacco dependence:? Unfortunately continues to smoke, he has tried to cut down his smoking by switching to cigars. has tried nicotine replacement therapy though has not been effective for him. Laboratory Tests 09/01/21 02/24/23 12:13 10:38 Hgb 18.3 H Hct 55.1 H Creatinine 0.86 ALT 49 H 64 H AST 40 H Cholesterol 228 208 H LDL Cholesterol, C alc 136 132 H TSH 3.46 PFSH Medical History (Updated 12/21/23 @ 08:45 by Matteo Orosco PA-C) Tubular adenoma of colon ANAMARIA (obstructive sleep apnea) Alcohol dependence HTN (hypertension) Surgical History History of surgery History of placement of ear tubes History of tonsillectomy Family History Mother No problems noted. Father Skin cancer Other Mental health disorder Social History Household Members: Family Housing: House Alcohol intake: current Alcohol intake frequency: 3 or more drinks per day Alcohol type: beer Patient Tobacco Use Status: Current everyday Tobacco user Tobacco use type: Cigarette Cigarettes Per Day: 15 Years Smoked: 8 years e-Cigarette/Vaping Use: Never Used Second Hand Smoke Exposure: Yes service: No Current occupational status: disabled Current occupation: part-time- [employer] Cognitive needs: No Hearing needs: No Vision needs: No Questionnaire PHQ-9 Over the last 2 weeks, how often have you been bothered by any of the following problems? 1. Little interest or pleasure in doing things: several days 2. Feeling down, depressed, or hopeless: several days 3. Trouble falling or staying asleep, or sleeping too much: several days 4. Feeling tired or having little energy: several days 5. Poor appetite or overeating: more than half the days 6. Feeling bad about yourself - or that you are a failure or have let yourself or your family down: more than half the days 7. Trouble concentrating on things, such as reading the newspaper or watching television: more than half the days 8. Moving or speaking so slowly that other people could have noticed. Or the opposite - being so fidgety or restless that you have been moving around a lot more than usual: not at all 9. Thoughts that you would be better off or of hurting yourself in some way: several days Total score: 11 Depression Screening Interpretation: Positive Depression Screening Follow-up: Existing condition Depression Screening Done: Yes 79695 - PHQ-9 Billing: Yes Source: Developed by Drs. Babar Prince, Aspen Brennan, Shiva Caceres and colleagues, with an educational deshaun from [employer]. Thrive Questionnaire Date Thrive assessed: 12/21/23 I am a: Patient What is your living situation today?: I have a steady place to live Within the past 12 months, did the food you bought not last and you didn't have the money to get more?: Never true Within the past 12 months, did you worry whether your food would run out before you got money to buy more?: Never true Do you have trouble paying for medicines?: No Do you have trouble getting transportation to medical appointments?: No Do you have trouble paying your heating and electricity bill?: No Do you have trouble taking care of your child, family member or friend?: No Do you have trouble with day-to-day activities such as bathing, preparing meals, shopping, managing finances, etc.?: No Are you currently unemployed and looking for a job?: No Are you interested in more education?: No Please select the resources that you would like help with: None Currently or been in a relationship where the following occur: No concerns reported THRIVE Score: 0 AUDIT C Alcohol Use Questionnaire (AUDIT-C) 1. How often do you have a drink containing alcohol?: 4 or more times a week 2. How many drinks containing alcohol do you have on a typical day when you are drinking?: 5 or 6 3. How often do you have six or more drinks on one occasion?: Weekly Total Score: 9 YUSRA-7 AMB Questionnaire YUSRA-7 Date YUSRA - 7 assessed: 12/21/23 Feeling nervous, anxious, or on edge: 2 = More than half the days Not being able to stop or control worryin = More than half the days Worrying too much about different things: 3 = Nearly every day Trouble relaxin = More than half the days Being so restless that it is hard to sit still: 2 = More than half the days Becoming easily annoyed or irritable: 2 = More than half the days Feeling afraid as if something awful might happen: 3 = Nearly every day Total YUSRA-7 score (0-4 normal; 5-9 mild; 10-14 moderate; 15-21 severe): 16 Source: Developed by Drs. Babar Prince, Aspen Brennan, Shiva Caceres and colleagues, with an educational deshaun from [employer]. YUSRA-7 Assessment Billing YUSRA-7 Assessment Tool: YUSRA-7 Assessment 53201 Review of Systems Const Denies headache(s) Eyes Denies loss of vision ENT Denies vertigo, Denies dizziness, Denies headache(s) and Denies sore throat Card Denies chest pain, Denies leg edema and Denies lightheadedness Resp Denies cough, Denies hemoptysis and Denies wheezing GI Details: + dysphagia Denies abdominal pain, Denies melena, Denies constipation, Denies diarrhea and Denies vomiting Denies dysuria, Denies urinary frequency and Denies urinary urgency Musc Denies arthralgias, Denies joint swelling, Denies numbness and Denies tingling Neuro Denies Abnormal speech present, Denies behavioral changes, Denies vertigo, Denies dizziness, Denies headache(s), Denies loss of vision, Denies memory loss, Denies numbness and Denies tingling Psych Denies anxiety, Denies behavioral changes, Denies depression, Denies memory loss and Denies panic attacks Gonzalo/Lymph Denies easy bleeding and Denies easy bruising Aller/Immun Denies wheezing Physical exam (Primary Care) Vital Signs: Last Vital Signs Pulse 67 12/21/23 08:22 BP 122/86 12/21/23 08:22 Pulse Ox 98 12/21/23 08:22 Oxygen Delivery Method Room Air 12/21/23 08:22 BMI result Body Mass Index 29.5 Tobacco/Smoking Status: Tobacco use Status Tobacco use date assessed 12/21/23 (Pt would try to 12/21/23 08:33 quit.) Patient Tobacco Use Status Current everyday Tobacco 12/21/23 08:23 Tobacco use type Cigarette 12/21/23 08:23 e-Cigarette/Vaping Use Never Used 12/21/23 08:23 Are you ready to quit: No Tobacco cessation counseling provided: Yes Items discussed: Nicotine replacement Relapse Prevention: discussed the importance of a supportive environment, discussed negative mood or depression after quitting, weight gain after smoking is common and discussed dietary, exercise and/or lifestyle changes Number of minutes spent counselin CPT code: 20463 - 4-10 Minutes PHQ-9: PHQ-9 Score PHQ-9: Total score 11 12/21/23 08:33 Depression Screening Interpretation: Positive Depression Screening Follow-up: Existing condition Thrive Assessment: Date of Thrive Assessment Date Thrive assessed 12/21/23 12/21/23 08:33 Currently or been in a relationship where the following occur: No concerns reported Const General: healthy appearing, no acute distress, alert and awake Nutritional Appearance: well nourished Orientation/consciousness: oriented to person, oriented to place and oriented to time HENMT Ears: TM's normal bilaterally General nose exam: Normal nasal mucous membranes and turbinates present Eyes Conjunctivae: conjunctivae normal Sclerae: sclerae normal Pupils: Equal, round and reactive pupils present Neck Neck: Yes no lymphadenopathy and Yes no JVD Thyroid: Thyroid normal Carotids: no bruits Resp Effort & Inspection: normal respiratory effort and not tachypneic Auscultation: no crackles, no rales, no rhonchi and no wheezes Cardio Rate: regular rate Rhythm: regular rhythm Heart sounds: no murmurs and normal S1 and S2 GI Palpation (GI): Soft to palpation, nontender, no hepatomegaly and no splenomegal y Auscultation: normal bowel sounds Skin General skin exam: no rashes or lesions noted and dry skin Neuro General: oriented to person, oriented to place and oriented to time Cranial nerves: Yes Equal, round and reactive pupils present Speech: No Abnormal speech present Gait exam (Neuro): Normal gait present Motor exam (neuro): no tremor noted Extrem Right upper extremity: full ROM Left upper extremity: full ROM Right lower extremity: full ROM; no edema Left lower extremity: full ROM; no edema Psych Mental Status: mental status grossly normal Speech and movement: Normal speech and movement present Affect: normal affect Attitude: cooperative Thought process: Normal thought process present Assessment and Plan Assessment & Plan (1) HTN (hypertension): Code(s): I10 - Essential (primary) hypertension Qualifiers: Hypertension type: unspecified Qualified Code(s): I10 - Essential (primary) hypertension Plan: blood pressure today in office acceptable dvised to monitor blood pressure at home. Continues current dose of amlodipine with goal blood pressure to be below 140/90 (2) Borderline high cholesterol: Code(s): E78.9 - Disorder of lipoprotein metabolism, unspecified Plan: MOST RECENT LIPID PANEL SHOWING BORDERLINE HIGH TOTAL CHOLESTEROL. HE WILL WORK ON LIFESTYLE MODIFICATIONS AND REDUCE HIGH CHOLESTEROL IN HIS DIET.. (3) Smoking: Code(s): F17.200 - Nicotine dependence, unspecified, uncomplicated Plan: Unfortunately patient continues to smoke. Declines my offers to start nicotine replacement therapy. Will try to reduce his cigarette smoking on his own. (4) Alcohol dependence: Code(s): F10.20 - Alcohol dependence, uncomplicated Qualifiers: Substance use status: uncomplicated Qualified Code(s): F10.20 - Alcohol dependence, uncomplicated Plan: Unfortunately continues to drink 7-8 beers per day and does understand he needs to cut down and stop. Offered him no checks only declines my offers at this time. Will continue to follow with liver enzymes. (5) OCD (obsessive compulsive disorder): Code(s): F42.9 - Obsessive-compulsive disorder, unspecified Qualifiers: Obsessive-compulsive disorder type: unspecified Qualified Code(s): F42.9 - Obsessive-compulsive disorder, unspecified Plan: Continues on 60 mg of fluoxetine with good effect on reducing his OCD tendencies. (6) Dysphagia: Code(s): R13.10 - Dysphagia, unspecified Qualifiers: Dysphagia type: esophageal phase Qualified Code(s): R13.19 - Other dysphagia Plan: As per HPI patient has been having intermittent episodes of dysphagia. Will send for barium swallow to evaluate for esophageal stricture or ring. Orders: Orders FL barium swallow Today R13.19 - Other dysphagia Medications: Refilled fluoxetine 20 mg PO DAILY 90 days 90 caps 1RF F42.9 - Obsessive-compulsive di sorder, unspecified clotrimazole 1% 1 appl topical BID 15 days 45 grams 3RF B36.0 - Pityriasis versicolor amlodipine 10 mg PO DAILY 90 tabs 1RF I10 - Essential (primary) hypertension fluoxetine Takes 60mg daily 40 mg PO DAILY 90 days 90 caps 1RF F42.9 - Obsessive- compulsive disorder, unspecified Patient Instructions: Goal: Blood pressure to remain below 140/90, COMPLETELY QUIT SMOKING Barriers: Adherence to physical activity and healthy eating habits Coding Level of Care Code Est Pt Level 4 (67618) Diagnoses Hypertension, unspecified type I10 Hypertension type: unspecified Borderline high cholesterol E78.9 Smoking F17.200 Uncomplicated alcohol dependence F10.20 Substance use status: uncomplicated Obsessive-compulsive disorder, unspecified type F42.9 Obsessive-compulsive disorder type: unspecified Esophageal dysphagia R13.19 Dysphagia type: esophageal phase Additional Codes YUSRA-7 Assessment Billing - YUSRA-7 Assessment Tool: YUSRA-7 Assessment 32645 ([id number]) Vital Signs *Quality* - CPT code: 76892 - 4-10 Minutes ([id number])
== END 2023-12-21 08:53 | disposition home or self-care (01) ==
PROVIDERS: PCP Physician Assistant; Visit Provider Physician Assistant
DX: I10 Essential (primary) hypertension (principal); F10.20 Alcohol dependence, uncomplicated; E78.9 Disorder of lipoprotein metabolism, unspecified; F17.200 Nicotine dependence, unspecified, uncomplicated; F42.9 Obsessive-compulsive disorder, unspecified; R13.19 Other dysphagia
CPT/HCPCS: 99214

== ENCOUNTER 2024-02-22 07:55 | Outpatient (REF) | payer OTHER, SELFPAY ==
[2024-02-22 08:47] LABS: Hematocrit 52.6 % (42.0-52.0); Hemoglobin 17.9 g/dl (14.0-18.0); Mean Corpuscular Hemoglobin 32.3 pg (27.0-33.0); Mean Corpuscular Volume 94.8 fL (80.0-98.0); Mean Platelet Volume 9.8 fL (9.4-12.4); Platelet Count 248 X10*3/uL (160-400); Red Blood Count 5.55 X10*6/uL (4.60-5.80); Red Cell Distribution Width 14.7 % (11.0-16.0); White Blood Count 5.9 X10*3/uL (4.8-10.8)
[2024-02-22 09:22] LABS: Creatinine Urine 144.89 mg/dL; Microalbum/Creatinine Ratio Ur 12.4 ug/mg cr (<30)
[2024-02-22 09:30] LABS: Alanine Aminotransferase 72 U/L (0-40); Albumin Level 4.2 g/dL (3.5-5.0); Alkaline Phosphatase 77 U/L (39-117); Anion Gap 12 (12-20); Bilirubin Total 0.8 mg/dL (0.0-1.0); Blood Urea Nitrogen 12 mg/dL (9-16); Calcium 9.4 mg/dL (8.4-10.2); Carbon Dioxide 25 mmol/L (22-29); Chloride 109 mmol/L (96-108); Cholesterol 215 mg/dL (<200); Estimated Glomerular Filt Rate > 60; Glucose Fasting 94 mg/dL (60-99); Glucose Random 95 mg/dL (60-115); HDL Cholesterol 52 mg/dL (>40); LDL Cholesterol Calculated 135 mg/dL (<100); Potassium 3.7 mmol/L (3.3-5.1); Sodium 142 mmol/L (135-145); Total Protein 7.2 g/dL (6.5-8.0); Triglycerides 141 mg/dL (<150)
[2024-02-22 09:37] LABS: Aspartate Amino Transferase 47 U/L (5-37)
[2024-02-22 09:40] LABS: Prostate Specific Antigen Scr 0.78 ng/mL (<0.05-4.0)
[2024-02-22 09:45] LABS: TSH reflex Free T4 3.07 uIU/mL (0.32-4.0)
== END 2024-02-22 07:56 | disposition home or self-care (01) ==
LOC: HO.LAB 07:55
PROVIDERS: PCP Physician Assistant; Visit Provider Physician Assistant
DX: G47.33 Obstructive sleep apnea (adult) (pediatric) (principal); Z12.5 Encounter for screening for malignant neoplasm of prostate; I10 Essential (primary) hypertension; R79.89 Other specified abnormal findings of blood chemistry; E78.9 Disorder of lipoprotein metabolism, unspecified; R13.19 Other dysphagia
CPT/HCPCS: 36415; 80048; 80053; 80061; 82043; 82570; 84153; 84443; 85027

== ENCOUNTER 2024-03-04 09:41 | Outpatient (REF) | payer OTHER, SELFPAY ==
--- NOTE | ~2024-03-04 | FL_ITS ---
EXAMINATION: XR FLUOROSCOPY UPPER GI WITH AIR CLINICAL INFORMATION: Reports food gets stuck in mid chest COMPARISON: None TECHNIQUE: Fluoroscopic air contrast upper GI examination was performed utilizing standard techniques with thin and thick barium and effervescent granules. Numerous spot images were obtained. FINDINGS: Dual and single contrast images of the esophagus demonstrate normal caliber, contour, and mucosal pattern. No evidence of stricture, mass, or ulcerations identified. Esophageal peristalsis was normal. A small type I hiatal hernia is present. Mild gastroesophageal reflux is seen in the distal esophagus. Dual contrast and single contrast images of the stomach demonstrated normal contour and mucosal pattern without evidence of mass, ulceration, or other abnormality. Contrast freely passed into the gastric antrum and duodenal bulb without delay. Single and air-contrast images of the duodenal bulb demonstrate no abnormality. The duodenal sweep has a normal appearance, course, and mucosal fold appearance. The imaged proximal jejunum has a normal fold pattern and caliber. FLUOROSCOPY TIME: 4 minutes 14 seconds Number of Spot Images: 6 Number of Cine: 12 DOSE AREA PRODUCT: 2674 uGy-m2 (microgray-meter squared) FL/FL barium swallow IMPRESSION: 1. Small type I hiatal hernia with mild gastroesophageal reflux. This procedure was performed by Milad Aviles PA-C, and supervised by Dr. Leonardo Electronically signed by: Konstantin Leonardo MD 03/05/2024 01:38 PM [facility]
== END 2024-03-04 09:42 | disposition home or self-care (01) ==
LOC: HO.XRAY 09:41
PROVIDERS: PCP Physician Assistant; Visit Provider Physician Assistant
DX: R13.19 Other dysphagia (principal)
CPT/HCPCS: 74220

== ENCOUNTER → 2024-03-04 09:47 | Outpatient (BNV) | payer OTHER, SELFPAY | PROVIDERS: PCP Physician Assistant; Visit Provider Physician Assistant Surgical | DX: R13.10 Dysphagia, unspecified (principal) | CPT/HCPCS: 74246 ==

== ENCOUNTER 2024-04-23 08:35 | Outpatient (AMB) | payer OTHER, SELFPAY ==
[2024-04-23 08:40] VITALS: BP 128/80; PULSE 77; O2SAT 97; BMI 30.9
--- NOTE | 2024-04-23 08:40 | MHC.PC.OV ---
Vital Signs 04/23/24 08:40 Height 5 ft 8 in Weight 203 lb 6 oz BMI 30.9 BP 128/80 Blood Pressure Location Lt brachial Position Sitting Pulse 77 Pulse Source Pulse Oximeter Pulse Oximetry (%) 97 Oxygen Delivery Method Room Air Intake Visit Reasons: Rash Allergies No Known Allergies [No Known Allergies*] Allergy (Verified 04/23/24 08:44) Medication List - Last Reconciled 04/23/24 by Matteo Orosco PA-C amlodipine 10 mg PO DAILY bisacodyl (Dulcolax (bisacodyl)) 20 mg (4 x 5 mg) PO ONCE 1 day clotrimazole 1% 1 appl topical BID 15 days fluoxetine 20 mg PO DAILY 90 days fluoxetine 40 mg PO DAILY 90 days miscellaneous medical supply (Blood Pressure Cuff) As directed miscellaneous medical supply 1 ea miscellaneous .nightly 99 days omeprazole 20 mg PO DAILY 30 days polyethylene glycol 3350 (Miralax) 238 grams PO ONCE 1 day Tobacco use date assessed: 04/23/24 (Pt would try to quit.) Dental Screening Dental Screen Date: 12/21/23 HPI Rash HPI Details The patient is a 54-year-old male presenting with a facial rash. The rash consists of bumps on the side of his face, which have been present for an extended period. The lesions are not painful and itchy. The patient did not notice any blackheads before, but they were observed during the consultation. He read about potential causes such as beta carotene blockage or high cholesterol affecting the skin. Previously, acne-type treatments such as benzoyl peroxide are suggested to alleviate similar symptoms. Additionally, the patient reported visiting a french pastry cook due to nail fungus and unspecified foot pain identified possibly as arthritis-related. He received nail [place] treatment that appears to be effective. No specific prior interventions for the ankle pain, previously linked to sciatica and without therapy due to a missed follow-up call. The patient last reported therapy for the sciatic nerve around two years ago, affecting the left ankle. The foot pain is intermittent, with occasional discomfort impacting his mobility. The patient also manages anxiety, hypertension, and GERD with fluoxetine, amlodipine, and omeprazole, respectively. The hypertension medication appears effective as blood pressure readings are controlled (128/80). He was advised on lipid management due to borderline cholesterol in past evaluations. COUNTS INCLUDE 234 BEDS AT THE [facility] Medical History (Updated 04/23/24 @ 08:54 by Matteo Orosco PA-C) Tubular adenoma of colon ANAMARIA (obstructive sleep apnea) Alcohol dependence HTN (hypertension) Surgical History History of surgery History of placement of ear tubes History of tonsillectomy Family History Mother No problems noted. Father Skin cancer Other Mental health disorder Social History Household Members: Family Housing: House Alcohol intake: current Alcohol intake frequency: 3 or more drinks per day Alcohol type: beer Patient Tobacco Use Status: Current everyday Tobacco user Tobacco use type: Cigarette Cigarettes Per Day: 15 Years Smoked: 8 years Packs per year/per ci.00 e-Cigarette/Vaping Use: Never Used Second Hand Smoke Exposure: Yes service: No Current occupational status: disabled Current occupation: part-time- [employer] Cognitive needs: No Hearing needs: No Vision needs: No Questionnaire Thrive Questionnaire Date Thrive assessed: 12/21/23 AUDIT C Alcohol Use Questionnaire (AUDIT-C) 2. How many drinks containing alcohol do you have on a typical day when you are drinking?: 5 or 6 3. How often do you have six or more drinks on one occasion?: Weekly Total Score: 5 YUSRA-7 AMB Questionnaire YUSRA-7 Date YUSRA - 7 assessed: 12/21/23 Source: Developed by Drs. Babar Prince, Aspen Brennan, Shiva Caceres and colleagues, with an educational deshaun from [employer]. Review of Systems Const Denies headache(s) Eyes Denies loss of vision ENT Denies vertigo, Denies dizziness, Denies headache(s) and Denies sore throat Card Denies chest pain, Denies leg edema and Denies lightheadedness Resp Denies cough, Denies hemoptysis and Denies wheezing GI Denies abdominal pain, Denies melena, Denies constipation, Denies diarrhea and Denies vomiting Denies dysuria, Denies urinary frequency and Denies urinary urgency Musc Denies arthralgias, Denies joint swelling, Denies numbness and Denies tingling Neuro Denies Abnormal speech present, Denies behavioral changes, Denies vertigo, Denies dizziness, Denies headache(s), Denies loss of vision, Denies memory loss, Denies numbness and Denies tingling Psych Denies anxiety, Denies behavioral changes, Denies depression, Denies memory loss and Denies panic attacks Gonzalo/Lymph Denies easy bleeding and Denies easy bruising Aller/Immun Denies wheezing Physical exam (Primary Care) Vital Signs: Last Vital Signs Pulse 77 04/23/24 08:40 BP 128/80 04/23/24 08:40 Pulse Ox 97 04/23/24 08:40 Oxygen Delivery Method Room Air 04/23/24 08:40 BMI result Body Mass Index 30.9 Tobacco/Smoking Status: Tobacco use Status Tobacco use date assessed 04/23/24 (Pt would try to 04/23/24 08:43 quit.) Patient Tobacco Use Status Current everyday Tobacco 04/23/24 08:43 Tobacco use type Cigarette 04/23/24 08:43 e-Cigarette/Vaping Use Never Used 04/23/24 08:43 Thrive Assessment: Date of Thrive Assessment Date Thrive assessed 12/21/23 04/23/24 08:43 Const General: healthy appearing, no acute distress, alert and awake Nutritional Appearance: well nourished Orientation/consciousness: oriented to person, oriented to place and oriented to time HENMT Ears: TM's normal bilaterally General nose exam: Normal nasal mucous membranes and turbinates present Eyes Conjunctivae: conjunctivae normal Sclerae: sclerae normal Pupils: Equal, round and reactive pupils present Neck Neck: Yes no lymphadenopathy and Yes no JVD Thyroid: Thyroid normal Carotids: no bruits Resp Effort & Inspection: normal respiratory effort and not tachypneic Auscultation: no crackles, no rales, no rhonchi and no wheezes Cardio Rate: regular rate Rhythm: regular rhythm Heart sounds: no murmurs and normal S1 and S2 GI Palpation (GI): Soft to palpation, nontender, no hepatomegaly and no splenomegaly Auscultation: normal bowel sounds Skin General skin exam: no rashes or lesions noted and dry skin Neuro General: oriented to person, oriented to place and oriented to time Cranial nerves: Yes Equal, round and reactive pupils present Speech: No Abnormal speech present Gait exam (Neuro): Normal gait present Motor exam (neuro): no tremor noted Extrem Right upper extremity: full ROM Left upper extremity: full ROM Right lower extremity: full ROM; no edema Left lower extremity: full ROM; no edema Psych Mental Status: mental status grossly normal Speech and movement: Normal speech and movement present Affect: normal affect Attitude: cooperative Thought process: Normal thought process present Coding Level of Care Code Est Pt Level 4 (47994) Diagnoses Acne vulgaris L70.0 Chronic pain of left ankle M25.572; G89.29 Chronicity: chronic Assessment & Plan Assessment & Plan (1) Acne vulgaris: Code(s): L70.0 - Acne vulgaris Category: Medical Plan: we discussed the potential causes of the facial rash, including clogged pores or possible cholesterol-related changes, and the use of benzoyl peroxide treatment. I recommended following up with a dermatologic facial wash routine and discussed options in case of insurance coverage issues. (2) Left ankle pain: Code(s): M25.572 - Pain in left ankle and joints of left foot Category: Medical Qualifiers: Chronicity: chronic Qualified Code(s): M25.572 - Pain in left ankle and joints of left foot; G89.29 - Other chronic pain Plan: I advised physical therapy for ankle pain and explored previous orders which were not acted upon. Does have a lower back issue to which he likely has been compensating his ambulation pattern which has been causing some left ankle pain. Orders: Orders Prostate Specific Antigen Scr Today R79.89 - Other specified abnormal findings of blood chemistry, Z12.5 - Encounter for screening for malignant neoplasm of prostate Comprehensive [place]. Panel Fast Today E78.9 - Disorder of lipoprotein metabolism, unspecified PT Evaluation and Treatment Today G89.29 - Other chronic pain, M25.572 - Pain in left ankle and joints of left foot TSH reflex Free T4 Today R79.89 - Other specified abnormal findings of blood chemistry Lipid Panel Today E78.9 - Disorder of lipoprotein metabolism, unspecified Complete Blood Count no Diff Today E78.9 - Disorder of lipoprotein metabolism, unspecified Medications: New benzoyl peroxide 10% 1 appl topical Q OTHER DAY 30 days 227 grams 0RF L70.0 - Acne vulgaris Refilled omeprazole 20 mg PO DAILY 30 days 30 caps 3RF R13.19 - Other dysphagia fluoxetine 20 mg PO DAILY 90 days 90 caps 1RF F42.9 - Obsessive-compulsive disorder, unspecified fluoxetine Takes 60mg daily 40 mg PO DAILY 90 days 90 caps 1RF F42.9 - Obsessive-compulsive disorder, unspecified amlodipine 10 mg PO DAILY 90 tabs 1RF I10 - Essential (primary) hypertension
== END 2024-04-23 08:57 | disposition home or self-care (01) ==
PROVIDERS: PCP Physician Assistant; Visit Provider Physician Assistant
DX: L70.0 Acne vulgaris (principal); M25.572 Pain in left ankle and joints of left foot; G89.29 Other chronic pain

== ENCOUNTER → 2024-04-23 08:35 | Outpatient (BNVA) | payer OTHER, SELFPAY | PROVIDERS: PCP Physician Assistant; Visit Provider Physician Assistant | DX: L70.0 Acne vulgaris (principal); M25.572 Pain in left ankle and joints of left foot; G89.29 Other chronic pain | CPT/HCPCS: 99212 ==

== ENCOUNTER 2024-05-03 06:27 | Outpatient (REF) | payer OTHER, SELFPAY ==
[2024-05-03 07:16] LABS: Hematocrit 54.2 % (42.0-52.0); Hemoglobin 18.5 g/dl (14.0-18.0); Mean Corpuscular HGB Conc 34.1 g/dl (31.0-36.0); Mean Corpuscular Hemoglobin 32.5 pg (27.0-33.0); Mean Corpuscular Volume 95.1 fL (80.0-98.0); Mean Platelet Volume 9.8 fL (9.4-12.4); Platelet Count 250 X10*3/uL (160-400); Red Cell Distribution Width 14.5 % (11.0-16.0); White Blood Count 6.1 X10*3/uL (4.8-10.8)
[2024-05-03 08:10] LABS: Alanine Aminotransferase 69 U/L (0-40); Albumin Level 4.4 g/dL (3.5-5.0); Alkaline Phosphatase 70 U/L (39-117); Anion Gap 12 (12-20); Aspartate Amino Transferase 42 U/L (5-37); Bilirubin Total 0.6 mg/dL (0.0-1.0); Blood Urea Nitrogen 13 mg/dL (9-16); Calcium 9.5 mg/dL (8.4-10.2); Carbon Dioxide 28 mmol/L (22-29); Chloride 110 mmol/L (96-108); Cholesterol 218 mg/dL (<200); Estimated Glomerular Filt Rate > 60; Glucose Fasting 98 mg/dL (60-99); HDL Cholesterol 50 mg/dL (>40); LDL Cholesterol Calculated 145 mg/dL (<100); Potassium 4.2 mmol/L (3.3-5.1); Sodium 146 mmol/L (135-145); Total Protein 7.5 g/dL (6.5-8.0); Triglycerides 119 mg/dL (<150)
[2024-05-03 08:51] LABS: Prostate Specific Antigen Scr 0.82 ng/mL (<0.05-4.0)
[2024-05-03 08:54] LABS: TSH reflex Free T4 3.82 uIU/mL (0.32-4.0)
== END 2024-05-03 06:28 | disposition home or self-care (01) ==
LOC: HO.LAB 06:27
PROVIDERS: PCP Physician Assistant; Visit Provider Physician Assistant
DX: R79.89 Other specified abnormal findings of blood chemistry (principal); E78.9 Disorder of lipoprotein metabolism, unspecified; Z12.5 Encounter for screening for malignant neoplasm of prostate
CPT/HCPCS: 36415; 80053; 80061; 84153; 84443; 85027

== ENCOUNTER 2024-06-19 07:58 | Outpatient (AMB) | payer OTHER, SELFPAY ==
--- NOTE | 2024-06-19 08:00 | A.OFFPC_ITS ---
Vital Signs 06/19/24 08:01 Height 5 ft 8 in Weight 201 lb BMI 30.6 BP 128/82 Blood Pressure Location Lt brachial Position Sitting Pulse 89 Pulse Source Pulse Oximeter Pulse Oximetry (%) 96 Oxygen Delivery Method Room Air Intake Visit Reasons: 6 month follow up Allergies No Known Allergies [No Known Allergies*] Allergy (Verified 06/19/24 08:20) Medication List - Last Reconciled 06/19/24 by Matteo Orosco PA-C amlodipine 10 mg PO DAILY benzoyl peroxide 10% 1 appl topical Q OTHER DAY 30 days bisacodyl (Dulcolax (bisacodyl)) 20 mg (4 x 5 mg) PO ONCE 1 day clotrimazole 1% 1 appl topical BID 15 days fluoxetine 20 mg PO DAILY 90 days fluoxetine 40 mg PO DAILY 90 days miscellaneous medical supply (Blood Pressure Cuff) As directed miscellaneous medical supply 1 ea miscellaneous .nightly 99 days omeprazole 20 mg PO DAILY 30 days polyethylene glycol 3350 (Miralax) 238 grams PO ONCE 1 day Tobacco use date assessed: 06/19/24 (Pt would try to quit.) Dental Screening Dental Screen Date: 06/19/24 Did you have a dental visit in the last 12 months?: No Did you have a dental problem in the last 6 months where you did not have access to dental care?: No Was dental information given to patient?: No HPI 6 month follow up HPI Details Patient is a 54-year-old male here today for a follow-up visit.? Patient has a past medical history significant for hypertension, OCD, tobacco use disorder, alcohol use disorder. Concern--> has a skin lesion over his upper back he would like evaluated. .. HTN:? Blood pressure in office today acceptable..? Continues?on amlodipine 10 mg without any? side effect. ? He does not monitor blood pressure at home. .. Borderline high cholesterol: Most recent labs showing borderline high cholesterol. Has been trying to make changes in his diet to reduce his cholesterol. Alcohol dependence:? Unfortunately continues to drink though he reports he has cut down. ( reports 7-8 beers per day). Recent labs showing slightly elevated liver enzymes .. Obstructive sleep apnea:? Continues with the use of his CPAP machine on a nightly basis with good effect on his sleep. Of note hemoglobins slightly elevated on most recent labs. .. Tobacco dependence:? Unfortunately continues to smoke, he has tried to cut down his smoking by switching to cigars. has tried nicotine replacement therapy though has not been effective for him. Laboratory Tests 02/24/23 02/22/24 05/03/24 10:38 08:03 06:43 RBC 5.70 Hgb 18.3 H 18.5 H AST 47 H 42 H ALT 72 H 69 H Cholesterol 215 H 218 H LDL Cholesterol, C alc 135 H 145 H PFSH Medical History (Updated 06/19/24 @ 08:43 by Matteo Orosco PA-C) Alcohol dependence HTN (hypertension) Tubular adenoma of colon ANAMARIA (obstructive sleep apnea) Surgical History History of surgery History of placement of ear tubes History of tonsillectomy Family History Mother No problems noted. Father Skin cancer Daughter Asthma Daughter No problems noted. Brother No problems noted. Sister No problems noted. Sister No problems noted. Other Mental health disorder Social History Household Members: Family Housing: House Alcohol intake: current Alcohol intake frequency: 3 or more drinks per day Alcohol type: beer Patient Tobacco Use Status: Current everyday Tobacco user Tobacco use type: Cigarette Cigarette Packs Per Day: 1 Cigarettes Per Day: 15 Years Smoked: 8 years e-Cigarette/Vaping Use: Never Used Second Hand Smoke Exposure: Yes service: No Current occupational status: disabled Current occupation: part-time- [id number] Cognitive needs: No Hearing needs: No Vision needs: Yes Questionnaire PHQ-9 Over the last 2 weeks, how often have you been bothered by any of the following problems? 1. Little interest or pleasure in doing things: several days 2. Feeling down, depressed, or hopeless: several days 3. Trouble falling or staying asleep, or sleeping too much: several days 4. Feeling tired or having little energy: several days 5. Poor appetite or overeating: more than half the days 6. Feeling bad about yourself - or that you are a failure or have let yourself or your family down: more than half the days 7. Trouble concentrating on things, such as reading the newspaper or watching television: more than half the days 8. Moving or speaking so slowly that other people could have noticed. Or the opposite - being so fidgety or restless that you have been moving around a lot more than usual: not at all 9. Thoughts that you would be better off or of hurting yourself in some way: several days Total score: 11 Depression Screening Interpretation: Positive Depression Screening Follow-up: Existing condition Depression Screening Done: Yes 99402 - PHQ-9 Billing: Yes Source: Developed by Drs. Babar Prince, Aspen Brennan, Shiva Caceres and colleagues, with an educational deshaun from [employer] Thrive Questionnaire Date Thrive assessed: 06/19/24 I am a: Patient What is your living situation today?: I have a steady place to live Within the past 12 months, did the food you bought not last and you didn't have the money to get more?: Never true Within the past 12 months, did you worry whether your food would run out before you got money to buy more?: Never true Do you have trouble paying for medicines?: No Do you have trouble getting transportation to medical appointments?: No Do you have trouble paying your heating and electricity bill?: No Do you have trouble taking care of your child, family member or friend?: No Do you have trouble with day-to-day activities such as bathing, preparing meals, shopping, managing finances, etc.?: No Are you currently unemployed and looking for a job?: No Are you interested in more education?: No Currently or been in a relationship where the following occur: No concerns reported THRIVE Score: 0 AUDIT C Alcohol Use Questionnaire (AUDIT-C) 1. How often do you have a drink containing alcohol?: 4 or more times a week 2. How many drinks containing alcohol do you have on a typical day when you are drinking?: 7 to 9 3. How often do you have six or more drinks on one occasion?: Daily or almost daily Total Score: 11 YUSRA-7 AMB Questionnaire YUSRA-7 Date YUSRA - 7 assessed: 06/19/24 Feeling nervous, anxious, or on edge: 1 = Several days Not being able to stop or control worryin = Several days Worrying too much about different things: 1 = Several days Trouble relaxin = Several days Being so restless that it is hard to sit still: 0 = Not at all Becoming easily annoyed or irritable: 2 = More than half the days Feeling afraid as if something awful might happen: 2 = More than half the days Total YUSRA-7 score (0-4 normal; 5-9 mild; 10-14 moderate; 15-21 severe): 8 Source: Developed by Drs. Babar Prince, Aspen Brennan, Shiva Caceres and colleagues, with an educational deshaun from [employer] YUSRA-7 Assessment Billing YUSRA-7 Assessment Tool: YUSRA-7 Assessment 61856 Review of Systems Const Denies headache(s) Eyes Denies loss of vision ENT Denies vertigo, Denies dizziness, Denies headache(s) and Denies sore throat Card Denies chest pain, Denies leg edema and Denies lightheadedness Resp Denies cough, Denies hemoptysis and Denies wheezing GI Denies abdominal pain, Denies melena, Denies constipation, Denies diarrhea and Denies vomiting Denies dysuria, Denies urinary frequency and Denies urinary urgency Musc Denies arthralgias, Denies joint swelling, Denies numbness and Denies tingling Neuro Denies Abnormal speech present, Denies behavioral changes, Denies vertigo, Denies dizziness, Denies headache(s), Denies loss of vision, Denies memory loss, Denies numbness and Denies tingling Psych Denies anxiety, Denies behavioral changes, Denies depression, Denies memory loss and Denies panic attacks Gonzalo/Lymph Denies easy bleeding and Denies easy bruising Aller/Immun Denies wheezing Physical exam (Primary Care) Vital Signs: Last Vital Signs Pulse 89 06/19/24 08:01 BP 128/82 06/19/24 08:01 Pulse Ox 96 06/19/24 08:01 Oxygen Delivery Method Room Air 06/19/24 08:01 BMI result Body Mass Index 30.6 BMI Assessment/Plan discussion: High BMI High, discussed plan: lifestyle, weight reduction and physical activity Tobacco/Smoking Status: Tobacco use Status Tobacco use date assessed 06/19/24 (Pt would try to 06/19/24 08:08 quit.) Patient Tobacco Use Status Current everyday Tobacco 06/19/24 08:08 Tobacco use type Cigarette 06/19/24 08:08 e-Cigarette/Vaping Use Never Used 06/19/24 08:08 Are you ready to quit: No Tobacco cessation counseling provided: Yes Items discussed: Nicotine replacement Relapse Prevention: discussed the importance of a supportive environment, discussed negative mood or depression after quitting, weight gain after smoking is common and discussed dietary, exercise and/or lifestyle changes Number of minutes spent counselin CPT code: 82971 - 4-10 Minutes PHQ-9: PHQ-9 Score PHQ-9: Total score 11 06/19/24 08:08 Depression Screening Interpretation: Positive Depression Screening Follow-up: Existing condition Thrive Assessment: Date of Thrive Assessment Date Thrive assessed 06/19/24 06/19/24 08:08 Currently or been in a relationship where the following occur: No concerns reported Const General: healthy appearing, no acute distress, alert and awake Nutritional Appearance: well nourished Orientation/consciousness: oriented to person, oriented to place and oriented to time HENMT Ears: TM's normal bilaterally General nose exam: Normal nasal mucous membranes and turbinates present Eyes Conjunctivae: conjunctivae normal Sclerae: sclerae normal Pupils: Equal, round and reactive pupils present Neck Neck: Yes no lymphadenopathy and Yes no JVD Thyroid: Thyroid normal Carotids: no bruits Resp Effort & Inspection: normal respiratory effort and not tachypneic Auscultation: no crackles, no rales, no rhonchi and no wheezes Cardio Rate: regular rate Rhythm: regular rhythm Heart sounds: no murmurs and normal S1 and S2 GI Palpation (GI): Soft to palpation, nontender, no hepatomegaly and no splenomegaly Auscultation: normal bowel sounds Skin General skin exam: no rashes or lesions noted and dry skin Neuro General: oriented to person, oriented to place and oriented to time Cranial nerves: Yes Equal, round and reactive pupils present Speech: No Abnormal speech present Gait exam (Neuro): Normal gait present Motor exam (neuro): no tremor noted Extrem Right upper extremity: full ROM Left upper extremity: full ROM Right lower extremity: full ROM; no edema Left lower extremity: full ROM; no edema Psych Mental Status: mental status grossly normal Speech and movement: Normal speech and movement present Affect: normal affect Attitude: cooperative Thought process: Normal thought process present Coding Level of Care Code Est Pt Level 4 (97868) Diagnoses Hypertension, unspecified type I10 Hypertension type: unspecified Uncomplicated alcohol dependence F10.20 Substance use status: uncomplicated Obsessive-compulsive disorder, unspecified type F42.9 Obsessive-compulsive disorder type: unspecified Skin lesion of back L98.9 Smoking F17.200 Class 1 obesity E66.811 Additional Codes YUSRA-7 Assessment Billing - YUSRA-7 Assessment Tool: YUSRA-7 Assessment 17028 ([id number]) PHQ-9 - 90955 - PHQ-9 Billing: Yes ([id number]) Vital Signs *Quality* - CPT code: 71969 - 4-10 Minutes ([id number]) Assessment & Plan Assessment & Plan (1) HTN (hypertension): Code(s): I10 - Essential (primary) hypertension Category: Medical Qualifiers: Hypertension type: unspecified Qualified Code(s): I10 - Essential (primary) hypertension Plan: Patient's blood pressure acceptable today in office. Will continue his current dose of amlodipine with goal blood pressure to be below 140/90 (2) Alcohol dependence: Code(s): F10.20 - Alcohol dependence, uncomplicated Category: Medical Qualifiers: Substance use status: uncomplicated Qualified Code(s): F10.20 - Alcohol dependence, uncomplicated Plan: Patient continues to drink several beers daily. He does understand he needs to cut down and quit. Most recent liver enzymes slightly elevated. (3) OCD (obsessive compulsive disorder): Code(s): F42.9 - Obsessive-compulsive disorder, unspecified Category: Medical Qualifiers: Obsessive-compulsive disorder type: unspecified Qualified Code(s): F42.9 - Obsessive-compulsive disorder, unspecified Plan: Patient continues on fluoxetine 60 mg daily for his OCD which has been effective. Also seems to use alcohol to help him with his OCD as well. He is not interested in a mental health therapist or psychiatrist at this time. (4) Skin lesion of back: Code(s): L98.9 - Disorder of the skin and subcutaneous tissue, unspecified Category: Medical Plan: Has skin lesion on back, appears to be seborrheic keratoses though he is concerned. Will refer to Dermatology for evaluation and biopsy. (5) Smoking: Code(s): F17.200 - Nicotine dependence, unspecified, uncomplicated Category: Social Hx Plan: Patient continues to smoke and does understand he needs to quit. Offered him nicotine replacement in her medication though he declines. He has been smoking since around age 12 or 13.. He is interested in the lung cancer screening program. (6) Class 1 obesity: Code(s): E66.811 - Obesity, class 1 Category: Medical Plan: Patient's BMI above 30. He will work on being more physically active and adapting to better eating habits to reduce his weight Orders: Orders Comprehensive [place]. Panel Fast Today E78.9 - Disorder of lipoprotein metabolism, unspecified Lipid Panel Today E78.9 - Disorder of lipoprotein metabolism, unspecified Complete Blood Count no Diff Today E78.9 - Disorder of lipoprotein metabolism, unspecified Referrals Dermatology Referral L98.9 - Disorder of the skin and subcutaneous tissue, unspecified Thoracic/General Surgery Referral F17.200 - Nicotine dependence, unspecified, uncomplicated Medications: Refilled fluoxetine 20 mg PO DAILY 90 days 90 caps 2RF F42.9 - Obsessive-compulsive disorder, unspecified fluoxetine Takes 60mg daily 40 mg PO DAILY 90 days 90 caps 2RF F42.9 - Obsessive- compulsive disorder, unspecified Patient Instructions: ::Goal: Blood pressure to remain below 140/90, reduce and quit drinking alcohol. Barriers: Adherence to physical activity and healthy eating habits
[2024-06-19 08:01] VITALS: BP 128/82; PULSE 89; O2SAT 96; BMI 30.6
--- OUTSIDE RECORDS SUMMARY | 2024-06-19 08:05 | XMS_ITS | Clinical Summary ---
Author Organization [address] [place] [address] [facility] Address [address] [place] [address] Phone Care Team Providers Care Tool Inspector Name Role Phone Matteo Orosco Primary Care Provider [phone] Allergies No known active allergies Medications ciclopirox (PENLAC) 8 % solution Apply topically at bedtime. Apply over nail and surrounding skin. Apply daily over previous coat. After seven (7) days, may remove with alcohol and continue cycle. 6.6 mL 4 06/27/19 25 Active terbinafine (LamISIL) 250 mg tablet Take 1 tablet (250 mg total) by mouth 1 (one) time each day. 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; Dermatophytosis, nail from Last 3 Months Social History Tobacco Use Types Packs/Day Years Used Date Smoking Tobacco: Never Assessed Sex and Gender Information Value Date Recorded Sex Assigned at Not on file Legal Sex Male 11:40 AM EDT Gender Identity Not on file Sexual Orientation Not on file Last Filed Vital Signs Vital Sign Reading Time Taken Comments Blood Pressure - - Pulse - - Temperature - - Respiratory Rate - - Oxygen Saturation - - Inhaled Oxygen Concentration - - Weight 83.5 kg (184 lb) 03/28/2024 9:47 AM EST Height 175.3 cm (5' 9 ) 03/28/2024 9:47 AM EST Body Mass Index 27.17 03/28/2024 9:47 AM EST Plan of Treatment Health Maintenance Due Date Last Done Comments Hepatitis B Vaccines (1 of 3 - 19+ 3-dose series) 01/03/1988 Pneumococcal Vaccine: 50+ Ye ars (1 of 1 - PCV) 2019 Zoster Vaccines (1 of 2) 2019 COVID-19 Vaccine (2 - 2023-2 5 season) 2023 04/10/2021 Influenza Vaccine (#1) 2023 Cholesterol Screening (Lipid Panel) 02/05/2024 Colorectal Cancer Screening: Colonoscopy 02/05/2024 Depression Screening 02/05/2024 HIV Screening 02/05/2024 Hepatitis C Screening 02/05/2024 Medicare Annual Wellness Visit 02/05/2024 Social Influencers of Health Screening 02/05/2024 DTaP,Tdap,and Td Vaccines (2 - Td or Tdap) 10/25/2028 10/25/2018 HIB Vaccines Aged Out No longer eligi ble based on patient's age to complete this topic HPV Vaccines Aged Out No longer eligi ble based on patient's age to complete this topic Hepatitis A Vaccines Aged Out No long er eligible based on patient's age to complete this topic IPV Vaccines Aged Out No longer eligi ble based on patient's age to complete this topic MMR Vaccines Aged Out No longer eligi ble based on patient's age to complete this topic Meningococcal ACWY Vaccine Aged Out N o longer eligible based on patient's age to complete this topic Meningococcal B Vacine Aged Out No lo nger eligible based on patient's age to complete this topic Pneumococcal Vaccine: Pediat rics (0 to 5 Years) and At-Risk Patients (6 to 64 Years) Aged Out No longer eligi ble based on patient's age to complete this topic RSV Immunization Patients Un eliecer 20 months Aged Out No longer eligible b ased on patient's age to complete this topic Varicella Vaccines Aged Out No longer eligible based on patient's age to complete this topic Insurance [employer] Member Subscriber Plan / Payer (Ef fective 2020-Present) Name:Niko Sanchez Relation to Subscriber:Self Name:Niko Sanchez Payer ID:[id number] Group ID:[id number] Type:Not on file Address: [place] [address] [place] [phone] Care Teams Tool Inspector Relationship Specialty Start Date End Date Matteo Orosco PA [address] [place] [phone] PCP - General 12/28/23
== END 2024-06-19 08:39 | disposition home or self-care (01) ==
PROVIDERS: PCP Physician Assistant; Visit Provider Physician Assistant
DX: I10 Essential (primary) hypertension (principal); F10.20 Alcohol dependence, uncomplicated; E66.811 Obesity, class 1; Z68.30 Body mass index [BMI] 30.0-30.9, adult; F42.9 Obsessive-compulsive disorder, unspecified; L98.9 Disorder of the skin and subcutaneous tissue, unspecified; F17.210 Nicotine dependence, cigarettes, uncomplicated

== ENCOUNTER → 2024-06-19 07:58 | Outpatient (BNVA) | payer OTHER, SELFPAY | PROVIDERS: PCP Physician Assistant; Visit Provider Physician Assistant | DX: I10 Essential (primary) hypertension (principal); F10.20 Alcohol dependence, uncomplicated; F42.9 Obsessive-compulsive disorder, unspecified; L98.9 Disorder of the skin and subcutaneous tissue, unspecified; E66.811 Obesity, class 1; Z68.30 Body mass index [BMI] 30.0-30.9, adult; F17.200 Nicotine dependence, unspecified, uncomplicated; Z71.6 Tobacco abuse counseling; Z71.3 Dietary counseling and surveillance | CPT/HCPCS: 96127; 99212 ==

== ENCOUNTER 2024-08-09 09:36 | Outpatient (AMB) | payer OTHER, SELFPAY ==
--- NOTE | 2024-08-09 08:09 | A.OFFVIS_ITS ---
Intake Visit Reasons: Current Smoker Allergies No Known Allergies [No Known Allergies*] Allergy (Verified 06/19/24 08:20) HPI HPI Current Smoker: Details: Initial visit for this 54yo smoker with a 20PYH. Patient started smoking at age 14 for 40years at 1/2ppd. . Denies marijuana use. Denies second hand smoke exposure. Denies exposure to chemicals or substances like asbestos. . Denies known family history of lung cancer. Denies personal history of cancers. Denies chest CT in last year. . Denies recent travel outside the [place]. Denies recent respiratory illness or recent hospitalization for respiratory issues. Reports testing positive for COVID once. Admits receiving COVID Vaccine. . Reports work up for trouble swallowing. Barrium swallow showed hiatal hernia. Denies fever, chills, new/worsening cough, hemoptysis, hoarseness. Denies significant chest pain, significant dyspnea or unintentional weight loss. Patient Lung Cancer Screening Questionnaire reviewed with patient by provider. . Shared Decision Making Completed. Patient meets criteria. Discussed in detail with patient, the risk vs benefit of LDCT screening. Patient consents to proceed with scan. Discussed smoking cessation. [facility] Medical History (Updated 08/09/24 @ 10:00 by Antonella Duke PA-C) Nicotine dependence, cigarettes, uncomplicated Alcohol dependence HTN (hypertension) Tubular adenoma of colon ANAMARIA (obstructive sleep apnea) Surgical History (Updated 07/11/24 @ 08:43 by Antonella Duke PA-C) History of colonoscopy History of surgery History of placement of ear tubes History of tonsillectomy Family History Mother No problems noted. Father Skin cancer Daughter Asthma Daughter No problems noted. Brother No problems noted. Sister No problems noted. Sister No problems noted. Other Mental health disorder Social History (Updated 08/09/24 @ 10:01 by Antonella Duke PA-C) Household Members: Family Housing: House Alcohol intake: current Alcohol intake frequency: 3 or more drinks per day Alcohol type: beer Patient Tobacco Use Status: Current everyday Tobacco user Tobacco use type: Cigarette Years Smoked: (onset 14yo, 1/2ppd x 40yrs, 20pyh) e-Cigarette/Vaping Use: Never Used Second Hand Smoke Exposure: Yes service: No Current occupational status: disabled Current occupation: part-time- [employer] Cognitive needs: No Hearing needs: No Vision needs: Yes Assessment & Plan Assessment & Plan (1) Nicotine dependence, cigarettes, uncomplicated: Comment: (onset 14yo, 1/2ppd x 40yrs, 20pyh) Code(s): F17.210 - Nicotine dependence, cigarettes, uncomplicated Category: Medical Plan: - SDM visit completed today in office. - Patient meets criteria for LDCT for lung cancer screening purposes and is asymptomatic. - Smoking cessation counseling offered. Patients can always call [phone]. - Will arrange for a LDCT scan of the chest for screening purposes at [facility]. - Risks, benefits, and alternatives were discussed in detail and the patient agrees to proceed. - Risks discussed include but are not limited to: radiation exposure, anxiety during testing and while awaiting results, false negatives, false positives and possibility of additional intervention such as further imaging or surgical procedures for benign disease. - Benefits are obviously detection of lung cancer at an early stage which can lead to improved outcomes. - Discussed the importance of screening program compliance with adherence to yearly LDCT scan as scheduled - or sooner interval scans for personalized screening regimen. - Discussed follow up plan. Our office will send a letter discussing results and if needed set up phone call and office visit based on CT findings. - Patient educated on results categorization and the management decisions for suspicious findings potentially found on the screening LDCT scan. Any patient with a Lung RADS score of 3 or 4 will be reviewed by a multidisciplinary team at [facility] to form a plan of action in regards to scan findings. - If further work up is warranted for a suspicious lung finding this will be followed by the Lung Cancer Screening program in conjunction with the Thoracic Surgery Department at [facility]. - A copy of the office note and LDCT will be sent to the patient's PCP - as well as documentation on any associated further plans of care. - Incidental findings on LDCT are the PCP's responsibility. These findings are indicated with an S finding on the LDCT Assessment. A note discussing the findings will be sent to the PCP who is then responsible for further management. - All questions answered.? Coding Level of Care Code Lung Cancer Screening G0296 Diagnoses Nicotine dependence, cigarettes, uncomplicated F17.210
--- OUTSIDE RECORDS SUMMARY | 2024-08-09 10:12 | XMS_ITS | Clinical Summary ---
Author Organization [address] [place] [address] Address [address] [place] [address] Phone Care Team Providers Care Fish Grader Name Role Phone Matteo Orosco Primary Care Provider Allergies No known active allergies Medications terbinafine (LamISIL) 250 mg tablet Take 1 tablet (250 mg total) by mouth 1 (one) time each day. 30 tablet 2 05/22/2024 Active Social History Tobacco Use Types Packs/Day Years [...] Vaccines (1 of 2) 2019 COVID-19 Vaccine (2023-2 5 season) 2023 04/10/2021 Cholesterol Screening (Lipid Panel) 02/05/2024 Colorectal Cancer Screening: Colonoscopy 02/05/2024 Depression Screening 02/05/2024 HIV Screening 02/05/2024 Hepatitis C Screening 02/05/2024 Medicare Annual Wellness Visit 02/05/2024 Social Influencers of Health Screening 02/05/2024 Influenza Vaccine (Season Ended) 2024 DTaP,Tdap,and Td Vaccines (2 - Td or [...] age to complete this topic Meningococcal B Vaccine Aged Out No l onger eligible based on patient's age to complete [...] ID:[id number] Group ID:ICO Type:Not on file Address: [place] [facility] [place] [id number] Care Teams Fish Grader Relationship Specialty Start Date End Date Matteo Orosco PA [address] [place] [phone] PCP - General 12/28/23
== END 2024-08-09 09:59 | disposition home or self-care (01) ==
LOC: HO.HPS 09:37
PROVIDERS: PCP Physician Assistant; Referring Provider Physician Assistant; Visit Provider Physician Assistant Medical
DX: F17.210 Nicotine dependence, cigarettes, uncomplicated (principal)
CPT/HCPCS: G0296

== ENCOUNTER 2024-08-09 10:00 | Outpatient (REF) | payer OTHER, SELFPAY ==
--- NOTE | ~2024-08-09 | CT_ITS ---
CLINICAL HISTORY: F17.210 - Nicotine dependence, cigarettes, uncomplicated CT lung cancer screening (LDCT) Comparison: None Technique: Axial CT images of the chest using low-dose technique. Referring provider counseled the patient on shared decision-making for LDCT screening. Additional counseling was provided on smoking cessation. Effective radiation dose total: DLP 44.4 mGycm, CTDIvol 1.3 mGy. Findings: Lung: The trachea and central bronchi are patent. Centrilobular emphysema. Calcified left lower lobe granuloma. No suspicious pulmonary nodules or masses. Coronary artery calcifications: None appreciated. Nondilated aorta. No adenopathy or pericardial effusion. No chest wall lesions or axillary adenopathy. No thyroid nodules. Limited upper abdomen: Unremarkable Other: None Impression: Prior granulomatous disease. Centrilobular emphysema. No suspicious nodules or masses. Lung rads category 1 Category 1: Normal; continue annual screening Category 2: Benign appearance or behavior, continue annual screening Category 3: Probably benign, [address] recommended Category 4A: Suspicious, [address] recommended; may consider PET/CT Category 4B: Suspicious, Additional diagnostics and/or tissue sampling recommended Category 4X: Suspicious, Additional diagnostics and/or tissue sampling recommended Category 0: Recalls (incomplete screen due to Incomplete coverage, Noise, Respiratory motion, Expiration, Obscured by acute abnormality) This document has been electronically signed by: Marcy Canela MD on 08/10/2024 09:20:08
--- OUTSIDE RECORDS SUMMARY | 2024-08-09 10:47 | XMS_ITS | Clinical Summary ---
Author Organization [address] [place] [address] Address [address] [place] [address] Phone Care Team Providers Care Rodent Control Worker Name Role Phone Matteo Orosco Primary Care [...] Group ID:[id number] Type:Not on file Address: [place] [facility] [place] [phone] Care Teams Rodent Control Worker Relationship Specialty Start Date End Date Matteo Orosco PA [address] [place] [phone] PCP - General 12/28/23
== END 2024-08-09 10:01 | disposition home or self-care (01) ==
LOC: HO.CT 10:00
PROVIDERS: PCP Physician Assistant; Visit Provider Physician Assistant Medical
DX: Z12.2 Encounter for screening for malignant neoplasm of respiratory organs (principal); F17.210 Nicotine dependence, cigarettes, uncomplicated
CPT/HCPCS: 71271; G0296

== ENCOUNTER → 2024-08-09 10:02 | Outpatient (BNV) | payer OTHER, SELFPAY | PROVIDERS: PCP Physician Assistant; Visit Provider Radiology Diagnostic Radiology | DX: F17.210 Nicotine dependence, cigarettes, uncomplicated (principal) | CPT/HCPCS: 71271 ==

== ENCOUNTER 2024-12-26 07:56 | Outpatient (AMB) | payer OTHER, SELFPAY ==
--- OUTSIDE RECORDS SUMMARY | 2024-12-26 08:03 | XMS_ITS | Clinical Summary ---
Author Organization [address] [place] [address] Address [address] [place] [address] Phone Care Team Providers Care Tape Librarian Name Role Phone Matteo Orosco Primary Care Provider Allergies No known active allergies Medications No known medications Social History Tobacco Use Types Packs/Day Years [...] 2019 Zoster Vaccines (1 of 2) 2019 Cholesterol Screening (Lipid Panel) 02/05/2024 Colorectal Cancer Screening: Colonoscopy 02/05/2024 HIV Screening 02/05/2024 Hepatitis C Screening 02/05/2024 Medicare Annual Wellness Visit 02/05/2024 Social Influencers of Health Screening 02/05/2024 Depression Screening 04/24/2024 COVID-19 Vaccine (2 - 2024-2 6 season) 2024 04/10/2021 Influenza Vaccine (#1) 2024 DTaP,Tdap,and Td Vaccines (2 - Td [...] ID:[id number] Group ID:ICO Type:Not on file Address: [place] [address] [place] [phone] Care Teams Tape Librarian Relationship Specialty Start Date End Date Matteo Orosco PA [address] [place] [phone] PCP - General 12/28/23
--- NOTE | 2024-12-26 08:04 | A.OFFPC_ITS ---
Vital Signs 12/26/24 08:05 Height 5 ft 8 in Weight 201 lb BMI 30.6 BP 128/92 H Blood Pressure Location Lt brachial Position Sitting Pulse 79 Pulse Source Pulse Oximeter Pulse Oximetry (%) 98 Oxygen Delivery Method Room Air Intake Visit Reasons: PE Allergies No Known Allergies (No Known Allergies*) Allergy (Verified 12/26/24 08:15) Medication List - Last Reconciled 12/26/24 by Matteo Orosco PA-C amlodipine 10 mg PO DAILY amlodipine 10 mg PO DAILY clotrimazole 1% 1 appl topical BID 15 days fluoxetine 20 mg PO DAILY 90 days fluoxetine 40 mg PO DAILY 90 days miscellaneous medical supply (Blood Pressure Cuff) As directed miscellaneous medical supply 1 ea miscellaneous .nightly 99 days nicotine (polacrilex) 2 mg buccal Q2H PRN 15 days Tobacco use date assessed: 12/26/24 (Pt would try to quit.) Dental Screening Dental Screen Date: 06/19/24 HPI PE HPI Details Patient is a 54-year-old male here today for a routine annual phys ical.? Patient has a past medical history significant for hypertension, OCD, tobacco use disorder, alcohol use disorder. Concern--> has a skin lesion over his upper back he would like evaluated. Will call Dermatology for an appointment. .. HTN:? Blood pressure in office today acceptable..? Continues?on amlodipine 10 mg without any? side effect. ? He does not monitor blood pressure at home. .. Borderline high cholesterol: Most recent labs showing borderline high cholesterol. Has been trying to make changes in his diet to reduce his cholesterol. Alcohol dependence:? Unfortunately continues to drink though he reports he has cut down. ( reports 7-8 beers per day). Recent labs showing slightly elevated liver enzymes .. Obstructive sleep apnea:? Continues with the use of his CPAP machine on a nightly basis with good effect on his sleep. Of note hemoglobins slightly elevated on most recent labs. .. Tobacco dependence:? Unfortunately continues to smoke, he has tried to cut down his smoking by switching to cigars. has tried nicotine replacement therapy though has not been effective for him. Has completed the lung cancer screening CT chest noting BI-RADS 1. Vaccines: Up-to-date with tetanus vaccine, COVID vaccine, decline flu vaccine , considering pneumonia vaccine and shingles vaccine Colon cancer screening: Colonoscopy done in 2023, tubular adenoma polyp found, 5 year follow-up [facility] Medical History Nicotine dependence, cigarettes, uncomplicated Alcohol dependence HTN (hypertension) Tubular adenoma of colon ANAMARIA (obstructive sleep apnea) Surgical History History of colonoscopy History of surgery History of placement of ear tubes History of tonsillectomy Family History Mother No problems noted. Father Skin cancer Daughter Asthma Daughter No problems noted. Brother No problems noted. Sister No problems noted. Sister No problems noted. Other Mental health disorder Social History (Updated 12/26/24 @ 08:15 by Matteo Orosco PA-C) Household Members: Family Housing: House Alcohol intake: current Alcohol intake frequency: 3 or more drinks per day Alcohol type: beer Patient Tobacco Use Status: Current everyday Tobacco user Tobacco use type: Cigarette Cigarettes Per Day: 20 Years Smoked: (onset 14yo, 1/2ppd x 40yrs, 20pyh) e-Cigarette/Vaping Use: Never Used Second Hand Smoke Exposure: Yes service: No Current occupational status: disabled Current occupation: part-time- [employer] Cognitive needs: No Hearing needs: No Vision needs: Yes Questionnaire PHQ-9 Over the last 2 weeks, how often have you been bothered by any of the following problems? 1. Little interest or pleasure in doing things: not at all 2. Feeling down, depressed, or hopeless: not at all 3. Trouble falling or staying asleep, or sleeping too much: not at all 4. Feeling tired or having little energy: not at all 5. Poor appetite or overeating: not at all 6. Feeling bad about yourself - or that you are a failure or have let yourself or your family down: several days 7. Trouble concentrating on things, such as reading the newspaper or watching television: several days 8. Moving or speaking so slowly that other people could have noticed. Or the opposite - being so fidgety or restless that you have been moving around a lot more than usual: not at all 9. Thoughts that you would be better off or of hurting yourself in some way: not at all Total score: 2 Depression Screening Interpretation: Positive Depression Screening Follow-up: Existing condition Depression Screening Done: Yes 95963 - PHQ-9 Billing: Yes Source: Developed by Drs. Babar Prince, Aspen Brennan, Shiva Caceres and colleagues, with an educational deshaun from [employer]. Thrive Questionnaire Date Thrive assessed: 12/26/24 I am a: Patient What is your living situation today?: I have a steady place to live Within the past 12 months, did the food you bought not last and you didn't have the money to get more?: Sometimes True Within the past 12 months, did you worry whether your food would run out before you got money to buy more?: Sometimes True Do you have trouble paying for medicines?: No Do you have trouble getting transportation to medical appointments?: No Do you have trouble paying your heating and electricity bill?: No Do you have trouble taking care of your child, family member or friend?: No Do you have trouble with day-to-day activities such as bathing, preparing meals, shopping, managing finances, etc.?: Yes Are you currently unemployed and looking for a job?: No Are you interested in more education?: Yes Please select the resources that you would like help with: None Currently or been in a relationship where the following occur: No concerns reported THRIVE Score: 2 AUDIT C Alcohol Use Questionnaire (AUDIT-C) 1. How often do you have a drink containing alcohol?: 4 or more times a week 2. How many drinks containing alcohol do you have on a typical day when you are drinking?: 5 or 6 3. How often do you have six or more drinks on one occasion?: Daily or almost daily Total Score: 10 YUSRA-7 AMB Questionnaire YUSRA-7 Date YUSRA - 7 assessed: 12/26/24 Feeling nervous, anxious, or on edge: 3 = Nearly every day Not being able to stop or control worryin = Nearly every day Worrying too much about different things: 3 = Nearly every day Trouble relaxin = Nearly every day Being so restless that it is hard to sit still: 3 = Nearly every day Becoming easily annoyed or irritable: 3 = Nearly every day Feeling afraid as if something awful might happen: 3 = Nearly every day Total YUSRA-7 score (0-4 normal; 5-9 mild; 10-14 moderate; 15-21 severe): 21 Source: Developed by Drs. Babar Prince, Aspen Brennan, Shiva Caceres and colleagues, with an educational deshaun from [employer]. YUSRA-7 Assessment Billing YUSRA-7 Assessment Tool: YUSRA-7 Assessment 10012 Review of Systems Const Denies body aches, Denies chills, Denies excessive sweating, Denies fatigue, Denies fever(s) and Denies headache(s) Eyes Denies blurry vision ENT Denies dysphagia, Denies vertigo, Denies dizziness, Denies headache(s), Denies hearing loss and Denies tinnitus Card Denies chest pain, Denies chest pain with activity, Denies syncope, Denies irregular heart rhythm and Denies dyspnea Resp Denies chest congestion, Denies cough, Denies hemoptysis, Denies dyspnea and Denies wheezing GI Denies abdominal pain, Denies melena, Denies hematochezia, Denies coffee ground emesis, Denies dysphagia, Denies diarrhea, Denies nausea and Denies vomiting Denies difficulty urinating, Denies dysuria, Denies urinary frequency, Denies urinary hesitancy and Denies urinary urgency Musc Denies arthralgias, Denies limited range of motion, Denies muscle cramps and Denies muscle weakness Skin/Breast Denies rash and Denies skin ulcer Neuro Denies Abnormal speech present, Denies confusion, Denies vertigo, Denies dizziness, Denies syncope, Denies headache(s), Denies memory loss and Denies seizure-like activity Psych Denies anxiety, Denies confusion, Denies depression, Denies memory loss, Denies panic attacks and Denies paranoia Endo Denies excessive sweating, Denies fatigue, Denies flushing, Denies polydipsia and Denies polyuria Aller/Immun Denies wheezing Physical exam (Primary Care) Vital Signs: Last Vital Signs Pulse 79 12/26/24 08:05 BP 128/92 H 12/26/24 08:05 Pulse Ox 98 12/26/24 08:05 Oxygen Delivery Method Room Air 12/26/24 08:05 BMI result Body Mass Index 30.6 BMI Assessment/Plan discussion: High BMI High, discussed plan: lifestyle, weight reduction, dietary and physical activity Tobacco/Smoking Status: Tobacco use Status Tobacco use date assessed 12/26/24 (Pt would try to 12/26/24 08:09 quit.) Patient Tobacco Use Status Current everyday Tobacco 12/26/24 08:09 Tobacco use type Cigarette 12/26/24 08:09 e-Cigarette/Vaping Use Never Used 12/26/24 08:09 Are you ready to quit: No Tobacco cessation counseling provided: Yes Items discussed: Nicotine replacement Relapse Prevention: discussed the importance of a supportive environment, discussed negative mood or depression after quitting, weight gain after smoking is common and discussed dietary, exercise and/or lifestyle changes Number of minutes spent counselin CPT code: Less than 3 minutes PHQ-9: PHQ-9 Score PHQ-9: Total score 2 12/26/24 08:10 Depression Screening Interpretation: Positive Depression Screening Follow-up: Existing condition Thrive Assessment: Date of Thrive Assessment Date Thrive assessed 12/26/24 12/26/24 08:09 Currently or been in a relationship where the following occur: No concerns reported Const Other: Obese General: cooperative, comfortable, no acute distress, alert and awake; No confusion Orientation/consciousness: oriented to person, oriented to place, patient oriented x3 and No confusion HENMT Head: Yes normocephalic Ears: external ears normal and TM's normal bilaterally Face and sinus: No sinus tenderness Mouth: Normal oral and palatal mucosa present and tongue normal Teeth and gingiva: dentition normal and gingiva normal Throat: Yes posterior oropharynx normal, Yes tonsils normal and Yes uvula midline Eyes Conjunctivae: conjunctivae normal Sclerae: sclerae normal Pupils: Equal, round and reactive pupils present EOM: EOMs intact bilaterally Direct Ophthalmoscopy: No no photophobia Neck Neck: Yes no lymphadenopathy, No tender and Yes no JVD Thyroid: Thyroid normal Carotids: no bruits Chest Chest palpation & inspection: no tenderness Resp Effort & Inspection: normal respiratory effort, no audible wheezes, not labored and no stridor Auscultation: no crackles, no rales, no rhonchi and no wheezes Cardio Jugular venous distension: no JVD Rate: regular rate, not bradycardic and not tachycardic Rhythm: regular rhythm Bruits: no carotid bruits Peripheral pulses: Peripheral pulses 2+ throughout GI Inspection: Yes normal to inspection, No abdominal wall ecchymosis and No visible herniation Palpation (GI): Soft to palpation, nontender, no guarding, not rigid and No hepatosplenomegaly present Auscultation: normoactive bowel sounds General: Yes no CVA tenderness Back/Spine/Pelvis Back: no CVA tenderness and No back tenderness Cervical Spine: cervical ROM normal Thoracic/Lumbar Spine: thoracic and lumbar spine normal to inspection, straight leg raise negative bilaterally, No thoraco-lumbar ROM limited and No lumbar spinal tenderness Skin Lesions: no lesions Rashes: no rashes Wounds: no wounds Neuro General: oriented to person, oriented to place, patient oriented x3, CN's II-XI intact bilaterally and No confusion Cranial nerves: Yes Equal, round and reactive pupils present and Yes Normal accommodation reflex present Cognition (Neuro): normal cognition Speech: No Abnormal speech present Gait exam (Neuro): Normal gait present Motor exam (neuro): 5/5 motor strength present throughout Extrem Right upper extremity: full ROM; no cyanosis Left upper extremity: full ROM; no cyanosis Right lower extremity: no edema Left lower extremity: no edema Psych Appearance: grossly normal Mental Status: mental status grossly normal Affect: normal affect Attitude: cooperative Thought process: Normal thought process present Coding Level of Care Code Est Pt Prev Care 40-64y(56243) Diagnoses Annual physical exam Z00.00 Hypertension, unspecified type I10 Hypertension type: unspecified Uncomplicated alcohol dependence F10.20 Substance use status: uncomplicated Obsessive-compulsive disorder, unspecified type F42.9 Obsessive-compulsive disorder type: unspecified Smoking F17.200 Class 1 obesity E66.811 Additional Codes PHQ-9 - 73521 - PHQ-9 Billing: Yes ([id number]) YUSRA-7 Assessment Billing - YUSRA-7 Assessment Tool: YUSRA-7 Assessment 82910 ([id number]) Assessment & Plan Assessment & Plan (1) Annual physical exam: Code(s): Z00.00 - Encounter for general adult medical examination without abnormal findings Category: Medical Plan: As per HPI (2) HTN (hypertension): Code(s): I10 - Essential (primary) hypertension Category: Medical Qualifiers: Hypertension type: unspecified Qualified Code(s): I10 - Essential (primary) hypertension Plan: Patient's blood pressure acceptable today in office. Will continue his current dose of amlodipine with goal blood pressure to be below 140/90 (3) Alcohol dependence: Code(s): F10.20 - Alcohol dependence, uncomplicated Category: Medical Qualifiers: Substance use status: uncomplicated Qualified Code(s): F10.20 - Alcohol dependence, uncomplicated Plan: Patient continues to drink several beers daily. He does understand he needs to cut down and quit. Most recent liver enzymes slightly elevated. (4) OCD (obsessive compulsive disorder): Code(s): F42.9 - Obsessive-compulsive disorder, unspecified Category: Medical Qualifiers: Obsessive-compulsive disorder type: unspecified Qualified Code(s): F42.9 - Obsessive-compulsive disorder, unspecified Plan: Patient continues on fluoxetine 60 mg daily for his OCD which has been effective. Also seems to use alcohol to help him with his OCD as well. He is not interested in a mental health therapist or psychiatrist at this time. (5) Smoking: Code(s): F17.200 - Nicotine dependence, unspecified, uncomplicated Category: Social Hx Plan: Patient continues to smoke and does understand he needs to quit. Offered him nicotine replacement in her medication though he declines. He has been smoking since around age 12 or 13.. Has done lung cancer screening CT which appeared normal, will repeat annually (6) Class 1 obesity: Code(s): E66.811 - Obesity, class 1 Category: Medical Plan: Patient's BMI above 30. He will work on being more physically active and adapting to better eating habits to reduce his weight Medications: Refilled amlodipine 10 mg PO DAILY 90 tabs 1RF I10 - Essential (primary) hypertension fluoxetine 20 mg PO DAILY 90 caps 2RF 90 days F42.9 - Obsessive-compulsive disorder, unspecified fluoxetine Takes 60mg daily 40 mg PO DAILY 90 caps 2RF 90 days F42.9 - Obsessive- compulsive disorder, unspecified
[2024-12-26 08:05] VITALS: BP 128/92; PULSE 79; O2SAT 98; BMI 30.6
== END 2024-12-26 08:26 | disposition home or self-care (01) ==
LOC: HO.HMCH 07:57
PROVIDERS: PCP Physician Assistant; Visit Provider Physician Assistant
DX: Z00.00 Encounter for general adult medical examination without abnormal findings (principal); F10.20 Alcohol dependence, uncomplicated; Z68.30 Body mass index [BMI] 30.0-30.9, adult; E66.811 Obesity, class 1; I10 Essential (primary) hypertension; F42.9 Obsessive-compulsive disorder, unspecified; F17.200 Nicotine dependence, unspecified, uncomplicated

== ENCOUNTER → 2024-12-26 07:56 | Outpatient (BNVA) | payer OTHER, SELFPAY | PROVIDERS: PCP Physician Assistant; Visit Provider Physician Assistant | DX: Z00.00 Encounter for general adult medical examination without abnormal findings (principal); I10 Essential (primary) hypertension; E78.00 Pure hypercholesterolemia, unspecified; G47.33 Obstructive sleep apnea (adult) (pediatric); F42.9 Obsessive-compulsive disorder, unspecified; E66.811 Obesity, class 1; F10.20 Alcohol dependence, uncomplicated; F17.290 Nicotine dependence, other tobacco product, uncomplicated; Z68.30 Body mass index [BMI] 30.0-30.9, adult; Z99.89 Dependence on other enabling machines and devices | CPT/HCPCS: 96127; 99396 ==

== ENCOUNTER 2025-02-04 08:25 | Outpatient (REF) | payer OTHER, SELFPAY ==
--- OUTSIDE RECORDS SUMMARY | 2025-02-04 08:45 | XMS_ITS | Clinical Summary ---
Author Organization [address] [place] [address] Address [address] [place] [address] Phone Care Team Providers Care Peanut Grader Name Role Phone Matteo Orosco Primary [...] Health Maintenance Due Date Last Done Comments Colorectal Cancer Screening: Colonoscopy 1969 Hepatitis B Vaccines (1 of 3 - 19+ 3-dose series) 01/03/1988 Pneumococcal Vaccine: 50+ Ye ars (1 of 1 - PCV) 2019 Zoster Vaccines (1 of 2) 2019 Cholesterol Screening (Lipid Panel) 02/05/2024 HIV Screening 02/05/2024 Hepatitis C Screening 02/05/2024 Medicare Annual Wellness Visit 02/05/2024 Social Influencers of Health Screening 02/05/2024 Depression Screening 04/24/2024 COVID-19 Vaccine (2 - 2024-2 6 season) 2024 04/10/2021 Influenza Vaccine (#1) 2024 DTaP,Tdap,and Td Vaccines (2 - Td or Tdap) 10/25/2028 10/25/2018 RSV Immunization Adult Patie nts (1 - 1-dose 75+ series) 01/03/2044 HIB Vaccines Aged Out No longer eligi [...] ID:[id number] Group ID:[id number] Type:Not on file Address: [place] [address] [place] [id number] Care Teams Peanut Grader Relationship Specialty Start Date End Date Matteo Orosco PA [address] [place] [id number] PCP - General 12/28/23
[2025-02-04 08:54] LABS: Hemoglobin 19.7 g/dl (14.0-18.0); Mean Corpuscular HGB Conc 33.7 g/dl (31.0-36.0); Mean Corpuscular Hemoglobin 32.3 pg (27.0-33.0); Mean Corpuscular Volume 95.9 fL (80.0-98.0); NRBC Abs Auto 0.000 X10*3/uL (0.0-0.012); NRBC Pct Auto 0.0 /100WBC (0.0-0.2); Platelet Count 213 X10*3/uL (160-400); Red Blood Count 6.10 X10*6/uL (4.60-5.80); White Blood Count 5.9 X10*3/uL (4.8-10.8)
[2025-02-04 09:15] LABS: Hematocrit 58.5 % (42.0-52.0)
[2025-02-04 11:21] LABS: Alanine Aminotransferase 54 U/L (0-40); Albumin Level 4.5 g/dL (3.5-5.0); Alkaline Phosphatase 73 U/L (39-117); Anion Gap 14 (12-20); Aspartate Amino Transferase 39 U/L (5-37); Blood Urea Nitrogen 13 mg/dL (9-16); Calcium 9.1 mg/dL (8.4-10.2); Carbon Dioxide 27 mmol/L (22-29); Chloride 107 mmol/L (96-108); Cholesterol 215 mg/dL (<200); Estimated Glomerular Filt Rate > 60; HDL Cholesterol 52 mg/dL (>40); Potassium 4.0 mmol/L (3.3-5.1); Sodium 144 mmol/L (135-145); Total Protein 7.2 g/dL (6.5-8.0); Triglycerides 169 mg/dL (<150)
== END 2025-02-04 08:26 | disposition home or self-care (01) ==
LOC: HO.LAB 08:25
PROVIDERS: PCP Physician Assistant; Visit Provider Physician Assistant
DX: E78.9 Disorder of lipoprotein metabolism, unspecified (principal)
CPT/HCPCS: 36415; 80053; 80061; 85027

== ENCOUNTER 2025-04-01 13:46 | Outpatient (AMB) | payer OTHER, SELFPAY ==
--- NOTE | 2025-04-01 14:06 | MHC.PC.OV ---
Vital Signs 04/01/25 14:07 Height 5 ft 8 in Weight 205 lb 6 oz BMI 31.2 BP 122/80 Blood Pressure Location Lt brachial Position Sitting Pulse 87 Pulse Source Pulse Oximeter Temp 97.3 F Temp Source Temporal Artery Scan Pulse Oximetry (%) 96 Oxygen Delivery Method Room Air Intake Visit Reasons: Trouble Swallowing Intake Note: Patient is here to follow up on Trouble swallowing. 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 [employer] Processing: Not Required per policy Accompanied by: Self / Same As Patient Allergies No Known Allergies (No Known Allergies*) Allergy (Verified 04/01/25 14:48) Medication List - Last Reconciled 04/01/25 by Matteo Orosco PA-C amlodipine 10 mg PO DAILY clotrimazole 1% 1 appl topical BID 15 days fluoxetine 20 mg PO DAILY 90 days fluoxetine 40 mg PO DAILY 90 days lisinopril 5 mg PO DAILY 30 days miscellaneous medical supply (Blood Pressure Cuff) As directed miscellaneous medical supply 1 ea miscellaneous .nightly 99 days nicotine (polacrilex) 2 mg buccal Q2H PRN 15 days omeprazole 20 mg PO DAILY 30 days Tobacco use date assessed: 04/01/25 (Pt would try to quit.) Dental Screening Dental Screen Date: 06/19/24 HPI Trouble Swallowing HPI Details The patient is a 55 year old male presenting with follow-up on issues related to a hiatal hernia, including difficulty swallowing. He has a history of ulcers, which were identified via scope after a surgeon advised against a different procedure. He reports an episode where steak became lodged in his throat, causing him to induce emesis. The patient was previously prescribed an antacid medication, Prilosec, but he has been hesitant to take it due to paranoia about potential long-term side effects. He continues to drink alcohol and reports smoking, though not as much. He denies seeing any dark stools. [facility] Medical History (Updated 04/01/25 @ 14:46 by Matteo Orosco PA-C) ANAMARIA (obstructive sleep apnea) Nicotine dependence, cigarettes, uncomplicated Alcohol dependence HTN (hypertension) Tubular adenoma of colon Surgical History History of colonoscopy History of surgery History of placement of ear tubes History of tonsillectomy Family History Mother No problems noted. Father Skin cancer Daughter Asthma Daughter No problems noted. Brother No problems noted. Sister No problems noted. Sister No problems noted. Other Mental health disorder Social History Household Members: Family Housing: House Alcohol intake: current Alcohol intake frequency: 3 or more drinks per day Alcohol type: beer Patient Tobacco Use Status: Current everyday Tobacco user Tobacco use type: Cigarette Cigarette Packs Per Day: 0.5 Cigarettes Per Day: 10 Years Smoked: (onset 14yo, 1/2ppd x 40yrs, 20pyh) e-Cigarette/Vaping Use: Never Used Second Hand Smoke Exposure: Yes service: No Current occupational status: disabled Current occupation: part-time- [employer] Cognitive needs: No Hearing needs: No Vision needs: Yes Questionnaire Thrive Questionnaire Date Thrive assessed: 12/20/24 I am a: Patient What is your living situation today?: I have a steady place to live Within the past 12 months, did the food you bought not last and you didn't have the money to get more?: Sometimes True Within the past 12 months, did you worry whether your food would run out before you got money to buy more?: Sometimes True Do you have trouble paying for medicines?: No Do you have trouble getting transportation to medical appointments?: No Do you have trouble paying your heating and electricity bill?: No Do you have trouble taking care of your child, family member or friend?: No Do you have trouble with day-to-day activities such as bathing, preparing meals, shopping, managing finances, etc.?: Yes Are you currently unemployed and looking for a job?: No Are you interested in more education?: Yes Please select the resources that you would like help with: None Currently or been in a relationship where the following occur: No concerns reported THRIVE Score: 2 YUSRA-7 AMB Questionnaire YUSRA-7 Date YUSRA - 7 assessed: 12/26/24 Source: Developed by Drs. Babar Prince, Aspen Brennan, Shiva Caceres and colleagues, with an educational deshaun from [employer] Review of Systems Const Denies headache(s) Eyes Denies loss of vision ENT Reports dysphagia, Denies vertigo, Denies dizziness, Denies headache(s) and Denies sore throat Card Denies chest pain, Denies leg edema and Denies lightheadedness Resp Denies cough, Denies hemoptysis and Denies wheezing GI Denies abdominal pain, Denies melena, Denies constipation, Reports dysphagia, Reports dyspepsia, Reports heartburn, Denies diarrhea and Denies vomiting Denies dysuria, Denies urinary frequency and Denies urinary urgency Musc Denies arthralgias, Denies joint swelling, Denies numbness and Denies tingling Neuro Denies Abnormal speech present, Denies behavioral changes, Denies vertigo, Denies dizziness, Denies headache(s), Denies loss of vision, Denies memory loss, Denies numbness and Denies tingling Psych Denies anxiety, Denies behavioral changes, Denies depression, Denies memory loss and Denies panic attacks Gonzalo/Lymph Denies easy bleeding and Denies easy bruising Aller/Immun Denies wheezing Physical exam (Primary Care) Vital Signs: Last Vital Signs Temp 97.3 F 04/01/25 14:07 Pulse 87 04/01/25 14:07 BP 122/80 04/01/25 14:07 Pulse Ox 96 04/01/25 14:07 Oxygen Delivery Method Room Air 04/01/25 14:07 BMI result Body Mass Index 31.2 Tobacco/Smoking Status: Tobacco use Status Tobacco use date assessed 04/01/25 (Pt would try to 04/01/25 14:11 quit.) Patient Tobacco Use Status Current everyday Tobacco 04/01/25 14:11 Tobacco use type Cigarette 04/01/25 14:11 e-Cigarette/Vaping Use Never Used 04/01/25 14:11 Thrive Assessment: Date of Thrive Assessment Date Thrive assessed 12/20/24 04/01/25 14:11 Currently or been in a relationship where the following occur: No concerns reported Const General: healthy appearing, no acute distress, alert and awake Nutritional Appearance: well nourished Orientation/consciousness: oriented to person, oriented to place and oriented to time HENMT Ears: TM's normal bilaterally General nose exam: Normal nasal mucous membranes and turbinates present Eyes Conjunctivae: conjunctivae normal Sclerae: sclerae normal Pupils: Equal, round and reactive pupils present Neck Neck: Yes no lymphadenopathy and Yes no JVD Thyroid: Thyroid normal Carotids: no bruits Resp Effort & Inspection: normal respiratory effort and not tachypneic Auscultation: no crackles, no rales, no rhonchi and no wheezes Cardio Rate: regular rate Rhythm: regular rhythm Heart sounds: no murmurs and normal S1 and S2 GI Palpation (GI): Soft to palpation, nontender, no hepatomegaly and no splenomegaly Auscultation: normal bowel sounds Skin General skin exam: no rashes or lesions noted and dry skin Neuro General: oriented to person, oriented to place and oriented to time Cranial nerves: Yes Equal, round and reactive pupils present Speech: No Abnormal speech present Gait exam (Neuro): Normal gait present Motor exam (neuro): no tremor noted Extrem Right upper extremity: full ROM Left upper extremity: full ROM Right lower extremity: full ROM; no edema Left lower extremity: full ROM; no edema Psych Mental Status: mental status grossly normal Speech and movement: Normal speech and movement present Affect: normal affect Attitude: cooperative Thought process: Normal thought process present Coding Level of Care Code Est Pt Level 4 (23838) Diagnoses Esophageal dysphagia R13.19 Dysphagia type: esophageal phase Gastroesophageal reflux disease with esophagitis without hemorrhage K21.00 Esophagitis presence: with esophagitis Esophagitis bleeding: without hemorrhage Assessment & Plan Assessment & Plan (1) Dysphagia: Code(s): R13.10 - Dysphagia, unspecified Category: Medical Qualifiers: Dysphagia type: esophageal phase Qualified Code(s): R13.19 - Other dysphagia Plan: I will prescribe omeprazole (Prilosec) to reduce stomach acid, which should help alleviate symptoms and allow any potential ulcers to heal. The benefits of taking this medication currently outweigh the potential long-term risks. As an alternative, a liquid medication called Carafate could be considered to soothe the esophagus. I am placing a referral to gastroenterology for an endoscopy to directly visualize the esophagus and stomach. This is important to rule out conditions such as achalasia, an ulcer, or Otoole's esophagus, especially given his risk factors of smoking, alcohol use, and GERD, which can increase the risk of esophageal cancer. (2) GERD (gastroesophageal reflux disease): Code(s): K21.9 - Gastro-esophageal reflux disease without esophagitis Category: Medical Qualifiers: Esophagitis presence: with esophagitis Esophagitis bleeding: without hemorrhage Qualified Code(s): K21.00 - Gastro-esophageal reflux disease with esophagitis, without bleeding Plan: As above Orders: Referrals Gastroenterology Referral K21.9 - Gastro-esophageal reflux disease without esophagitis Medications: New omeprazole 20 mg PO DAILY 30 caps 1RF 30 days K21.9 - Gastro-esophageal reflux disease without esophagitis
[2025-04-01 14:07] VITALS: BP 122/80; PULSE 87; TEMP 36.3; O2SAT 96; BMI 31.2
== END 2025-04-01 14:45 | disposition home or self-care (01) ==
LOC: HO.HMCH 13:47
PROVIDERS: PCP Physician Assistant; Visit Provider Physician Assistant
DX: R13.19 Other dysphagia (principal); K21.00 Gastro-esophageal reflux disease with esophagitis, without bleeding

== ENCOUNTER → 2025-04-01 13:46 | Outpatient (BNVA) | payer OTHER, SELFPAY | PROVIDERS: PCP Physician Assistant; Visit Provider Physician Assistant | DX: K44.9 Diaphragmatic hernia without obstruction or gangrene (principal); R13.19 Other dysphagia; K21.00 Gastro-esophageal reflux disease with esophagitis, without bleeding | CPT/HCPCS: 99212 ==

== ENCOUNTER 2025-04-16 10:08 | Outpatient (AMB) | payer OTHER, SELFPAY ==
--- NOTE | 2025-04-16 10:13 | MHC.OFFVIS ---
Vital Signs 04/16/25 10:22 Height 5 ft 8 in Weight 205 lb BMI 31.2 BP 128/78 Blood Pressure Location Rt brachial Position Sitting Pulse 84 Pulse Source Pulse Oximeter Pulse Oximetry (%) 97 Oxygen Delivery Method Room Air Intake Visit Reasons: 30 MIN. LAURA 2023. GERD + Dysphagia. Intake Note: Est pt for mgmt of GERD w/ dysphagia. CC; C/O dysphagia and nocturnal exacerbation of GERD despite currrent therapy. Pt states that he will have choking episodes, sometimes regardless of the food that he is eating. Pt does report concern regarding past BA FL that was done which showed hiatal hernia. Pt is not sure if his dysphagia is more related to the hernia or the GERD. Athletic Trainer Required: No Accompanied by: Self / Same As Patient Allergies No Known Allergies (No Known Allergies*) Allergy (Verified 04/16/25 10:14) HPI HPI 30 MIN. LAURA 2023. GERD + Dysphagia.: Details: LAST VISIT: Tubular adenoma of colon Status post colonoscopy Diverticulosis Plan Discussed with patient high-fiber diet. List of food high in fiber given to patient. One tubular adenoma without high-grade dysplasia or carcinoma found colonoscopy in 7 years, sooner if clinically necessary. Patient had good prep and according to guidelines 1 tubular adenoma less than 1 cm 7-10 year recall. Patient is agreeable to current plan of care and verbalizes understanding of instructions. He was given the opportunity to ask questions and all questions answered. TODAY'S VISIT Patient is here today for refer acid visit. Patient reports that in the past few months he has been having trouble swallowing. Patient reports it is getting worse. Patient was placed by PCP on omeprazole. Patient reports that he was not taking it as he was afraid of potential side effects. Patient reports that he started taking the medication 2 weeks ago and states that for the symptoms are getting better. Still has a trouble swallowing certain things. Feels like the food is getting stuck in the lower part of the esophagus. Patient had swallow in February of 2024 that showed mild reflux and small type 1 hiatal hernia. Patient does admit that his diet is not always healthy. [facility] Medical History (Updated 04/16/25 @ 10:38 by America Urias [facility]) Dysphagia GERD (gastroesophageal reflux disease) ANAMARIA (obstructive sleep apnea) Nicotine dependence, cigarettes, uncomplicated Alcohol dependence HTN (hypertension) Tubular adenoma of colon Surgical History History of colonoscopy History of surgery History of placement of ear tubes History of tonsillectomy Family History Mother No problems noted. Father Skin cancer Daughter Asthma Daughter No problems noted. Brother No problems noted. Sister No problems noted. Sister No problems noted. Other Mental health disorder Social History Household Members: Family Housing: House Alcohol intake: current Alcohol intake frequency: 3 or more drinks per day Alcohol type: beer Patient Tobacco Use Status: Current everyday Tobacco user Tobacco use type: Cigarette Cigarette Packs Per Day: 0.5 Cigarettes Per Day: 10 Years Smoked: (onset 14yo, 1/2ppd x 40yrs, 20pyh) e-Cigarette/Vaping Use: Never Used Second Hand Smoke Exposure: Yes service: No Current occupational status: disabled Current occupation: part-time- bank cashier [employer] Cognitive needs: No Hearing needs: No Vision needs: Yes Review of Systems Const Denies weight gain and Denies weight loss ENT Reports no additional complaints, Reports dysphagia and Denies odynophagia Card Reports no additional complaints Resp Reports no additional complaints GI Denies abdominal pain, Denies belching, Denies melena, Denies bloating, Denies change in bowel habits, Reports dysphagia, Denies excessive flatus, Denies dyspepsia, Reports heartburn, Denies diarrhea, Denies loose stools, Denies nausea, Denies odynophagia and Denies vomiting Reports no additional complaints Musc Reports no additional complaints Neuro Reports no additional complaints Psych Reports no additional complaints Endo Reports no additional complaints Physical Exam Vital Signs: Last Vital Signs Pulse 84 04/16/25 10:22 BP 128/78 04/16/25 10:22 Pulse Ox 97 04/16/25 10:22 Oxygen Delivery Method Room Air 04/16/25 10:22 BMI result Body Mass Index 31.2 Const General: healthy appearing, no acute distress and well developed Nutritional Appearance: well nourished Orientation/consciousness: patient oriented x3 Resp Effort & Inspection: normal respiratory effort, able to speak in complete sentences, no tracheal deviation and symmetric chest movement Auscultation: clear to auscultation bilaterally Cardio Rate: regular rate GI Inspection: Yes normal to inspection, No distended and Yes obesity Palpation (GI): Soft to palpation, not firm, nontender and No hepatosplenomegaly present Auscultation: normal bowel sounds General: Yes no CVA tenderness Back/Spine/Pelvis Back: no CVA tenderness Skin General skin exam: elasticity normal, turgor normal and dry skin Neuro General: patient oriented x3 Psych Appearance: grossly normal Mental Status: mental status grossly normal Results Reviewed Results Reviewed: BARIUM SWALLOW FINDINGS: Dual and single contrast images of the esophagus demonstrate normal caliber, contour, and mucosal pattern. No evidence of stricture, mass, or ulcerations identified. Esophageal peristalsis was normal. A small type I hiatal hernia is present. Mild gastroesophageal reflux is seen in the distal esophagus. Dual contrast and single contrast images of the stomach demonstrated normal contour and mucosal pattern without evidence of mass, ulceration, or other abnormality. Contrast freely passed into the gastric antrum and duodenal bulb without delay. Single and air-contrast images of the duodenal bulb demonstrate no abnormality. The duodenal sweep has a normal appearance, course, and mucosal fold appearance. The imaged proximal jejunum has a normal fold pattern and caliber. FLUOROSCOPY TIME: 4 minutes 14 seconds Number of Spot Images: 6 Number of Cine: 12 DOSE AREA PRODUCT: 2674 uGy-m2 (microgray-meter squared) FL/FL barium swallow IMPRESSION: 1. Small type I hiatal hernia with mild gastroesophageal reflux. Assessment & Plan Assessment & Plan (1) Dysphagia: Code(s): R13.10 - Dysphagia, unspecified Category: Medical Qualifiers: Dysphagia type: esophageal phase Qualified Code(s): R13.19 - Other dysphagia (2) GERD (gastroesophageal reflux disease): Code(s): K21.9 - Gastro-esophageal reflux disease without esophagitis Category: Medical Qualifiers: Esophagitis presence: with esophagitis Esophagitis bleeding: without hemorrhage Qualified Code(s): K21.00 - Gastro-esophageal reflux disease with esophagitis, without bleeding Plan Patient will continue PPI. Will be sent for upper endoscopy to rule out gastritis, esophagitis, duodenitis, gastric or peptic ulcer, vera, H pylori. Avoid dietary triggers and late night snacking. Staying upright for minimum 3 hours after meals discussed with patient. I will see patient after the procedure, sooner on as needed basis. He is agreeable to this plan and verbalizes understanding of instructions. He was given the opportunity to ask questions and all questions answered. Thank you for allowing to participate in his care Orders: Referrals GI Procedure Notification K21.00 - Gastro-esophageal reflux disease with esophagitis, without bleeding, R13.19 - Other dysphagia Coding Level of Care Code Est Pt Level 4 (99456) Add On Problem Visit Only Diagnoses Esophageal dysphagia R13.19 Dysphagia type: esophageal phase Gastroesophageal reflux disease with esophagitis without hemorrhage K21.00 Esophagitis presence: with esophagitis Esophagitis bleeding: without hemorrhage Time Spent (min) 35 Comment 25 minutes spent with patient and additional 10 minutes spent reviewing his records
--- OUTSIDE RECORDS SUMMARY | 2025-04-16 10:17 | XMS_ITS | Clinical Summary ---
Author Organization [address] [place] [address] Address [address] [place] [address] Phone Care Team Providers Care Reeling Operator Name Role Phone Matteo Orosco Primary Care [...] ID:[id number] Group ID:[id number] Type:Not on file Address: [place] [address] [address] [phone] Care Teams Reeling Operator Relationship Specialty Start Date End Date Matteo Orosco PA [address] [place] [phone] PCP - General 12/28/23
[2025-04-16 10:22] VITALS: BP 128/78; PULSE 84; O2SAT 97; BMI 31.2
== END 2025-04-16 10:41 | disposition home or self-care (01) ==
LOC: HO.HGI 10:09
PROVIDERS: PCP Physician Assistant; Visit Provider Nurse Practitioner Family
DX: R13.19 Other dysphagia (principal); K21.00 Gastro-esophageal reflux disease with esophagitis, without bleeding
CPT/HCPCS: 99214; G2211

== ENCOUNTER → 2025-04-16 10:08 | Outpatient (BNVA) | payer OTHER, SELFPAY | PROVIDERS: PCP Physician Assistant; Visit Provider Nurse Practitioner Family | DX: K21.00 Gastro-esophageal reflux disease with esophagitis, without bleeding (principal); R13.19 Other dysphagia | CPT/HCPCS: 99212 ==